=== PATIENT | female | born 1960 | race Caucasian/White ===

== ENCOUNTER 2021-03-01 20:34 | Inpatient (IN) ==
[2021-03-02] MEDS ORDERED: 0.9 % Sodium Chloride 1,000 ML ONE (09:12)
[2021-03-02 09:23] LABS: ABG Base Excess -1 mEq/L (-2 to 3); ABG HCO3 24 mEq/L (21-27); ABG Oxygen Saturation 93 % (95-98); ABG PCO2 43 mmHg (35-45); ABG PH 7.36 pH Units (7.32-7.45); ABG PO2 68 mmHg (85-104); ABG TCO2 26 mEq/L (20-26); Blood Gas Modality AF; Blood Gas VT 500 cc
[2021-03-02] MEDS ORDERED: Artificial Tears SOLN 15 ML BOTTLE BOTH EYES PRN (09:27)
[2021-03-02] MEDS ORDERED: FentaNYL (PF) 1,000 MCG/100 ML IV.SOLN IVC SCH (09:30)
[2021-03-02] MEDS: FentaNYL (PF) 1,000 MCG/100 ML IV.SOLN IVC SCH ×2 (09:30→18:14)
[2021-03-02] MEDS: Midazolam HCl 50 MG/100 ML IV.SOLN IVC SCH ×2 (09:30→15:53)
[2021-03-02] MEDS ORDERED: Dextrose Gel 15 GM/37.5 ML TUBE PO PRN ×2 (09:52)
[2021-03-02] MEDS ORDERED: D5% in Water 1,000 ML IVC PRN (09:52)
[2021-03-02] MEDS ORDERED: *HR* Dextrose 50 % in Water (Syg) 50 ML SYRINGE IVP PRN (09:52)
[2021-03-02 09:56] LABS: Hematocrit 41.3 % (35.3-44.9); Hemoglobin 13.4 g/dL (11.5-15.4); Mean Corpuscular HGB Conc 32.4 g/dL (31.6-35.5); Mean Corpuscular Hemoglobin 30.1 pg (28.0-33.3); Mean Corpuscular Volume 92.8 fL (83.0-100.0); Platelet Count 264 K/mcL (140-400); Red Blood Count 4.45 M/mcL (3.82-4.97); Red Cell Distribution Width 13.5 % (11.5-14.5); White Blood Count 13.9 K/mcL (4.3-11.1)
[2021-03-02 10:00] LABS: ABG Base Excess -3 mEq/L (-2 to 3); ABG HCO3 22 mEq/L (21-27); ABG Oxygen Saturation 90 % (95-98); ABG PCO2 40 mmHg (35-45); ABG PH 7.35 pH Units (7.32-7.45); ABG PO2 62 mmHg (85-104); ABG TCO2 24 mEq/L (20-26); Blood Gas Modality AF; Blood Gas VT 420 cc
[2021-03-02] MEDS: Norepinephrine 4 MG/254 ML IV.SOLN IVC SCH ×2 (10:00→19:46)
[2021-03-02 10:15] LABS: Albumin 3.3 g/dL (3.5-5.7); Albumin/Globulin Ratio 1.1 (1.1-2.2); Bilirubin,Total 0.5 mg/dL (0.3-1.0); Globulin 2.9 g/dL (2.4-3.5); Potassium 4.3 mEq/L (3.5-5.1); Total Protein 6.2 g/dL (6.4-8.9)
[2021-03-02] MEDS: *HR* Enoxaparin 40 MG/0.4 ML SYRINGE SQ SCH (12:55)
[2021-03-02] MEDS: Furosemide 40 MG/4 ML VIAL IVP SCH ×2 (12:55→20:02)
[2021-03-02] MEDS: Insulin LISPRO 300 UNITS/3 ML VIAL SUBQ SCH ×3 (13:03→23:04)
[2021-03-02] MEDS: Artificial Tears SOLN 15 ML BOTTLE BOTH EYES SCH ×4 (13:04→21:17)
[2021-03-02] MEDS: Cisatracurium 200 MG in 0.9 % Sodium Chloride 180 ML IVC SCH ×2 (14:15→21:47)
[2021-03-02] MEDS: Chlorhexidine Rinse 15 ML MOUTHWASH MM SCH ×2 (17:55→20:02)
[2021-03-02] MEDS: Azithromycin 500 MG in 0.9 % Sodium Chloride 250 ML IVPB SCH (20:02)
[2021-03-02] MEDS: Piperacillin/Tazobactam 3.375 GM in 0.9 % Sodium Chloride Mini Bag 100 ML IVPB SCH (23:03)
[2021-03-03] MEDS: Norepinephrine 4 MG/254 ML IV.SOLN IVC SCH ×4 (00:04→23:38)
[2021-03-03] MEDS: FentaNYL (PF) 1,000 MCG/100 ML IV.SOLN IVC SCH ×2 (03:00→18:40)
[2021-03-03 03:48] LABS: Hemoglobin 12.2 g/dL (11.5-15.4); Mean Corpuscular HGB Conc 33.9 g/dL (31.6-35.5); Mean Corpuscular Hemoglobin 30.7 pg (28.0-33.3); Mean Corpuscular Volume 90.5 fL (83.0-100.0); Platelet Count 283 K/mcL (140-400); Red Blood Count 3.98 M/mcL (3.82-4.97); Red Cell Distribution Width 13.2 % (11.5-14.5); White Blood Count 8.8 K/mcL (4.3-11.1)
[2021-03-03 03:50] LABS: Alanine Aminotransferase 39 Units/L (7-52); Albumin 2.9 g/dL (3.5-5.7); Alkaline Phosphatase 44 Units/L (34-104); Aspartate Amino Transferase 31 Units/L (13-39); BUN/Creatinine Ratio 28 (6-26); Bilirubin,Total 0.4 mg/dL (0.3-1.0); Blood Urea Nitrogen 29 mg/dL (6-20); C-Reactive Protein 124 mg/L (Less than 10); Calcium 8.8 mg/dL (8.6-10.3); Carbon Dioxide 23 mEq/L (23-29); Chloride 109 mEq/L (98-107); Globulin 2.8 g/dL (2.4-3.5); Glucose 162 mg/dL (70-105); Osmolality,Calculated 305 (280-300); Potassium 3.6 mEq/L (3.5-5.1); Sodium 143 mEq/L (136-145); Total Protein 5.7 g/dL (6.4-8.9); eGFR For African Americans > 60 (> 60); eGFR For Non-African Americans 56 (> 60)
[2021-03-03] MEDS: *HR* Enoxaparin 40 MG/0.4 ML SYRINGE SQ SCH (05:01)
[2021-03-03] MEDS: Insulin LISPRO 300 UNITS/3 ML VIAL SUBQ SCH ×4 (05:02→23:09)
[2021-03-03] MEDS: Cisatracurium 200 MG in 0.9 % Sodium Chloride 180 ML IVC SCH ×3 (05:09→20:26)
[2021-03-03 05:34] LABS: ABG Base Excess 0 mEq/L (-2 to 3); ABG HCO3 24 mEq/L (21-27); ABG Oxygen Saturation 100 % (95-98); ABG PCO2 35 mmHg (35-45); ABG PH 7.45 pH Units (7.32-7.45); ABG PO2 242 mmHg (85-104); ABG TCO2 25 mEq/L (20-26); Blood Gas Modality ASSIST CONTROL; Blood Gas VT 420 cc
[2021-03-03] MEDS: Midazolam HCl 50 MG/100 ML IV.SOLN IVC SCH ×2 (06:15→18:40)
[2021-03-03] MEDS: Piperacillin/Tazobactam 3.375 GM in 0.9 % Sodium Chloride Mini Bag 100 ML IVPB SCH ×3 (09:04→23:12)
[2021-03-03] MEDS: Artificial Tears SOLN 15 ML BOTTLE BOTH EYES SCH ×5 (09:04→23:08)
[2021-03-03] MEDS: Furosemide 40 MG/4 ML VIAL IVP SCH ×2 (09:05→19:23)
[2021-03-03] MEDS: Dexamethasone Sodium Phos/PF 10 MG/ML VIAL IVP SCH (09:05)
[2021-03-03] MEDS: Chlorhexidine Rinse 15 ML MOUTHWASH MM SCH ×2 (09:05→19:23)
[2021-03-03] MEDS: Pantoprazole 40 MG VIAL IVP SCH (09:06)
[2021-03-03] MEDS: Azithromycin 500 MG in 0.9 % Sodium Chloride 250 ML IVPB SCH (19:21)
[2021-03-04] MEDS: FentaNYL (PF) 1,000 MCG/100 ML IV.SOLN IVC SCH ×6 (00:33→23:00)
[2021-03-04] MEDS: Artificial Tears SOLN 15 ML BOTTLE BOTH EYES SCH ×7 (03:09→21:38)
[2021-03-04 03:20] LABS: Hematocrit 35.5 % (35.3-44.9); Hemoglobin 11.5 g/dL (11.5-15.4); Mean Corpuscular HGB Conc 32.4 g/dL (31.6-35.5); Mean Corpuscular Hemoglobin 29.7 pg (28.0-33.3); Mean Corpuscular Volume 91.7 fL (83.0-100.0); Mean Platelet Volume 10.1 fL (9.4-12.4); Platelet Count 224 K/mcL (140-400); Red Blood Count 3.87 M/mcL (3.82-4.97); Red Cell Distribution Width 12.9 % (11.5-14.5); White Blood Count 5.7 K/mcL (4.3-11.1)
[2021-03-04 03:36] LABS: Alanine Aminotransferase 56 Units/L (7-52); Albumin 2.9 g/dL (3.5-5.7); Albumin/Globulin Ratio 1.1 (1.1-2.2); Alkaline Phosphatase 53 Units/L (34-104); Aspartate Amino Transferase 41 Units/L (13-39); BUN/Creatinine Ratio 33 (6-26); Bilirubin,Total 0.4 mg/dL (0.3-1.0); Blood Urea Nitrogen 30 mg/dL (6-20); C-Reactive Protein 49 mg/L (Less than 10); Calcium 8.7 mg/dL (8.6-10.3); Carbon Dioxide 27 mEq/L (23-29); Chloride 111 mEq/L (98-107); Globulin 2.6 g/dL (2.4-3.5); Glucose 181 mg/dL (70-105); Osmolality,Calculated 311 (280-300); Sodium 145 mEq/L (136-145); Total Protein 5.5 g/dL (6.4-8.9); eGFR For African Americans > 60 (> 60); eGFR For Non-African Americans > 60 (> 60)
[2021-03-04] MEDS: Cisatracurium 200 MG in 0.9 % Sodium Chloride 180 ML IVC SCH ×3 (03:43→19:59)
[2021-03-04] MEDS: *HR* Enoxaparin 40 MG/0.4 ML SYRINGE SQ SCH (05:02)
[2021-03-04 05:10] LABS: ABG Base Excess 2 mEq/L (-2 to 3); ABG HCO3 27 mEq/L (21-27); ABG Oxygen Saturation 96 % (95-98); ABG PCO2 42 mmHg (35-45); ABG PH 7.42 pH Units (7.32-7.45); ABG PO2 81 mmHg (85-104); ABG TCO2 29 mEq/L (20-26); Blood Gas Modality AF; Blood Gas VT 420 cc
[2021-03-04] MEDS: Insulin LISPRO 300 UNITS/3 ML VIAL SUBQ SCH ×4 (05:17→23:08)
[2021-03-04] MEDS: Chlorhexidine Rinse 15 ML MOUTHWASH MM SCH ×2 (08:19→20:05)
[2021-03-04] MEDS: Cholecalciferol (D-3) 1,000 UNIT (25MCG) TABLET PO SCH (08:21)
[2021-03-04] MEDS: Furosemide 40 MG/4 ML VIAL IVP SCH ×2 (08:21→20:05)
[2021-03-04] MEDS: Dexamethasone Sodium Phos/PF 10 MG/ML VIAL IVP SCH (08:21)
[2021-03-04] MEDS: Pantoprazole 40 MG VIAL IVP SCH (08:21)
[2021-03-04] MEDS: Piperacillin/Tazobactam 3.375 GM in 0.9 % Sodium Chloride Mini Bag 100 ML IVPB SCH ×3 (08:22→23:01)
[2021-03-04] MEDS ORDERED: *HR* Heparin 5,000 UNIT/ML VIAL IVP ONE (11:06)
[2021-03-04 11:54] LABS: Hematocrit 39.5 % (35.3-44.9); Hemoglobin 12.7 g/dL (11.5-15.4); Mean Corpuscular HGB Conc 32.2 g/dL (31.6-35.5); Mean Corpuscular Hemoglobin 29.9 pg (28.0-33.3); Mean Corpuscular Volume 92.9 fL (83.0-100.0); Platelet Count 263 K/mcL (140-400); Red Blood Count 4.25 M/mcL (3.82-4.97); Red Cell Distribution Width 12.9 % (11.5-14.5); White Blood Count 7.4 K/mcL (4.3-11.1)
[2021-03-04 12:02] LABS: Heparin anti-factor XA UFH 0.26 IU/mL (0.30-0.70); INR 1.1; Prothrombin Time 12.4 Seconds (9.4-12.1)
[2021-03-04] MEDS: Heparin 25,000UNIT/250ML 1/2NS 25,000 UNIT/250 ML IV.SOLN IVC SCH (12:29)
[2021-03-04] MEDS: Midazolam HCl 50 MG/100 ML IV.SOLN IVC SCH (13:30)
[2021-03-04] MEDS: Norepinephrine 4 MG/254 ML IV.SOLN IVC SCH ×2 (14:14→18:50)
[2021-03-04] MEDS ORDERED: *HR* Heparin 5,000 UNIT/ML VIAL IVP PRN ×2 (17:00)
[2021-03-05] MEDS: Norepinephrine 4 MG/254 ML IV.SOLN IVC SCH (00:14)
[2021-03-05] MEDS: Heparin 25,000UNIT/250ML 1/2NS 25,000 UNIT/250 ML IV.SOLN IVC SCH ×2 (00:16→17:29)
[2021-03-05] MEDS: Cisatracurium 200 MG in 0.9 % Sodium Chloride 180 ML IVC SCH ×3 (03:00→17:28)
[2021-03-05] MEDS: FentaNYL (PF) 1,000 MCG/100 ML IV.SOLN IVC SCH ×6 (03:01→23:31)
[2021-03-05 03:20] LABS: Hematocrit 37.7 % (35.3-44.9); Hemoglobin 12.4 g/dL (11.5-15.4); Mean Corpuscular HGB Conc 32.9 g/dL (31.6-35.5); Mean Corpuscular Volume 91.3 fL (83.0-100.0); Mean Platelet Volume 9.9 fL (9.4-12.4); Platelet Count 269 K/mcL (140-400); Red Blood Count 4.13 M/mcL (3.82-4.97); Red Cell Distribution Width 12.6 % (11.5-14.5); White Blood Count 7.3 K/mcL (4.3-11.1)
[2021-03-05 03:42] LABS: Alanine Aminotransferase 58 Units/L (7-52); Albumin 3.1 g/dL (3.5-5.7); Albumin/Globulin Ratio 1.2 (1.1-2.2); Alkaline Phosphatase 60 Units/L (34-104); Aspartate Amino Transferase 40 Units/L (13-39); BUN/Creatinine Ratio 41 (6-26); Bilirubin,Total 0.6 mg/dL (0.3-1.0); Blood Urea Nitrogen 38 mg/dL (6-20); C-Reactive Protein 23 mg/L (Less than 10); Calcium 9.2 mg/dL (8.6-10.3); Carbon Dioxide 28 mEq/L (23-29); Chloride 112 mEq/L (98-107); Globulin 2.6 g/dL (2.4-3.5); Glucose 163 mg/dL (70-105); Magnesium 2.2 mg/dL (1.6-2.6); Osmolality,Calculated 321 (280-300); Potassium 3.6 mEq/L (3.5-5.1); Sodium 149 mEq/L (136-145); Total Protein 5.7 g/dL (6.4-8.9); eGFR For African Americans > 60 (> 60); eGFR For Non-African Americans > 60 (> 60)
[2021-03-05 04:22] LABS: ABG Base Excess 5 mEq/L (-2 to 3); ABG HCO3 28 mEq/L (21-27); ABG Oxygen Saturation 100 % (95-98); ABG PCO2 35 mmHg (35-45); ABG PH 7.52 pH Units (7.32-7.45); ABG PO2 209 mmHg (85-104); ABG TCO2 29 mEq/L (20-26); Blood Gas Modality AF; Blood Gas VT 420 cc
[2021-03-05] MEDS: Insulin LISPRO 300 UNITS/3 ML VIAL SUBQ SCH ×3 (05:05→21:29)
[2021-03-05] MEDS: Midazolam HCl 50 MG/100 ML IV.SOLN IVC SCH ×2 (05:30→17:34)
[2021-03-05] MEDS: Dexamethasone Sodium Phos/PF 10 MG/ML VIAL IVP SCH (07:59)
[2021-03-05] MEDS: Pantoprazole 40 MG VIAL IVP SCH (07:59)
[2021-03-05] MEDS: Artificial Tears SOLN 15 ML BOTTLE BOTH EYES SCH ×4 (08:00→21:29)
[2021-03-05] MEDS: Piperacillin/Tazobactam 3.375 GM in 0.9 % Sodium Chloride Mini Bag 100 ML IVPB SCH ×2 (08:00→16:38)
[2021-03-05] MEDS: Chlorhexidine Rinse 15 ML MOUTHWASH MM SCH ×2 (08:00→21:28)
[2021-03-05] MEDS ORDERED: Perflutren Lipid Microsphere 1.3 ML in 0.9 % Sodium Chloride 8.7 ML IVP PRN (08:32)
[2021-03-05] MEDS: Cholecalciferol (D-3) 1,000 UNIT (25MCG) TABLET PO SCH (10:30)
[2021-03-05 11:14] LABS: ABG Base Excess 2 mEq/L (-2 to 3); ABG HCO3 28 mEq/L (21-27); ABG Oxygen Saturation 89 % (95-98); ABG PCO2 47 mmHg (35-45); ABG PH 7.38 pH Units (7.32-7.45); ABG PO2 59 mmHg (85-104); ABG TCO2 29 mEq/L (20-26); Blood Gas Modality ASSIST CONTROL; Blood Gas VT 420 cc
[2021-03-05] MEDS: Furosemide 40 MG/4 ML VIAL IVP SCH (11:20)
[2021-03-05] MEDS ORDERED: D10% in Water 500 ML IVC PRN (12:23)
[2021-03-05] MEDS ORDERED: Ipratropium 1 PUFF INHALER IH PRN (13:40)
[2021-03-05] MEDS ORDERED: Clinimix E 5%-15% SOLUTION 2,000 ML with MVI, adult with vitamin K 10 ML IVC SCH (17:00)
[2021-03-05 19:06] LABS: Bilirubin,Urine Negative (Negative); Blood,Urine Negative (Negative); Clarity,Urine Clear (Clear); Color,Urine Light-Yellow (Yellow); Glucose,Urine (UA) Normal (Normal); Ketones,Urine Negative (Negative); Leukocyte Esterase,Urine Negative (Negative); Nitrite,Urine Negative (Negative); Protein,Urine Trace mg/dL (Neg-Trace); Specific Gravity,Urine 1.028 (1.010-1.025); Urobilinogen,Urine Normal (Normal)
[2021-03-06] MEDS: Cisatracurium 200 MG in 0.9 % Sodium Chloride 180 ML IVC SCH ×2 (00:10→17:27)
[2021-03-06] MEDS: Piperacillin/Tazobactam 3.375 GM in 0.9 % Sodium Chloride Mini Bag 100 ML IVPB SCH ×3 (00:30→16:58)
[2021-03-06] MEDS: Insulin LISPRO 300 UNITS/3 ML VIAL SUBQ SCH ×5 (02:05→20:46)
[2021-03-06] MEDS: Artificial Tears SOLN 15 ML BOTTLE BOTH EYES SCH ×8 (02:05→23:59)
[2021-03-06] MEDS: FentaNYL (PF) 1,000 MCG/100 ML IV.SOLN IVC SCH ×5 (03:43→20:36)
[2021-03-06 04:06] LABS: ABG Base Excess 2 mEq/L (-2 to 3); ABG HCO3 28 mEq/L (21-27); ABG Oxygen Saturation 100 % (95-98); ABG PCO2 46 mmHg (35-45); ABG PH 7.39 pH Units (7.32-7.45); ABG PO2 293 mmHg (85-104); ABG TCO2 29 mEq/L (20-26); Blood Gas VT 420 cc
[2021-03-06] MEDS: Midazolam HCl 50 MG/100 ML IV.SOLN IVC SCH ×2 (04:59→15:43)
[2021-03-06 05:21] LABS: Alanine Aminotransferase 69 Units/L (7-52); Albumin/Globulin Ratio 1.2 (1.1-2.2); Alkaline Phosphatase 57 Units/L (34-104); Aspartate Amino Transferase 38 Units/L (13-39); BUN/Creatinine Ratio 48 (6-26); Bilirubin,Total 0.4 mg/dL (0.3-1.0); Blood Urea Nitrogen 39 mg/dL (6-20); C-Reactive Protein 8 mg/L (Less than 10); Calcium 9.1 mg/dL (8.6-10.3); Carbon Dioxide 27 mEq/L (23-29); Chloride 118 mEq/L (98-107); Globulin 2.6 g/dL (2.4-3.5); Glucose 206 mg/dL (70-105); Osmolality,Calculated 325 (280-300); Potassium 4.2 mEq/L (3.5-5.1); Sodium 150 mEq/L (136-145); Total Protein 5.6 g/dL (6.4-8.9); eGFR For African Americans > 60 (> 60); eGFR For Non-African Americans > 60 (> 60)
[2021-03-06] MEDS: Dexamethasone Sodium Phos/PF 10 MG/ML VIAL IVP SCH (08:41)
[2021-03-06] MEDS: Chlorhexidine Rinse 15 ML MOUTHWASH MM SCH ×2 (08:41→20:10)
[2021-03-06] MEDS: Pantoprazole 40 MG VIAL IVP SCH (08:42)
[2021-03-06] MEDS: Cholecalciferol (D-3) 1,000 UNIT (25MCG) TABLET PO SCH (08:42)
[2021-03-06] MEDS ORDERED: Furosemide 40 MG/4 ML VIAL IVP SCH (09:00)
[2021-03-06 12:40] LABS: ABG Base Excess 1 mEq/L (-2 to 3); ABG HCO3 27 mEq/L (21-27); ABG Oxygen Saturation 87 % (95-98); ABG PCO2 51 mmHg (35-45); ABG PH 7.34 pH Units (7.32-7.45); ABG PO2 58 mmHg (85-104); ABG TCO2 29 mEq/L (20-26); Blood Gas Modality ASSIST CONTROL; Blood Gas VT 420 cc
[2021-03-06 15:20] LABS: Hemoglobin 12.3 g/dL (11.5-15.4); Mean Corpuscular Hemoglobin 29.9 pg (28.0-33.3); Mean Corpuscular Volume 99.5 fL (83.0-100.0); Mean Platelet Volume 9.7 fL (9.4-12.4); Platelet Count 273 K/mcL (140-400); Red Blood Count 4.12 M/mcL (3.82-4.97); White Blood Count 9.7 K/mcL (4.3-11.1)
[2021-03-06] MEDS ORDERED: Clinimix E 5%-15% SOLUTION 2,000 ML with MVI, adult with vitamin K 10 ML IVC SCH (17:00)
[2021-03-06 19:42] LABS: ABG Base Excess 0 mEq/L (-2 to 3); ABG HCO3 27 mEq/L (21-27); ABG Oxygen Saturation 96 % (95-98); ABG PCO2 49 mmHg (35-45); ABG PH 7.35 pH Units (7.32-7.45); ABG PO2 88 mmHg (85-104); ABG TCO2 28 mEq/L (20-26); Blood Gas Modality ASSIST CONTROL; Blood Gas VT 420 cc
[2021-03-06] MEDS: Heparin 25,000UNIT/250ML 1/2NS 25,000 UNIT/250 ML IV.SOLN IVC SCH (20:48)
[2021-03-07] MEDS: Insulin LISPRO 300 UNITS/3 ML VIAL SUBQ SCH ×7 (00:13→23:34)
[2021-03-07] MEDS: Midazolam HCl 50 MG/100 ML IV.SOLN IVC SCH ×3 (00:26→20:05)
[2021-03-07] MEDS: FentaNYL (PF) 1,000 MCG/100 ML IV.SOLN IVC SCH ×5 (00:27→17:55)
[2021-03-07] MEDS: Cisatracurium 200 MG in 0.9 % Sodium Chloride 180 ML IVC SCH ×3 (00:29→16:40)
[2021-03-07] MEDS: Piperacillin/Tazobactam 3.375 GM in 0.9 % Sodium Chloride Mini Bag 100 ML IVPB SCH ×4 (00:35→23:10)
[2021-03-07] MEDS: Artificial Tears SOLN 15 ML BOTTLE BOTH EYES SCH ×7 (02:01→23:10)
[2021-03-07 04:26] LABS: Hematocrit 36.9 % (35.3-44.9); Hemoglobin 11.4 g/dL (11.5-15.4); Mean Corpuscular HGB Conc 30.9 g/dL (31.6-35.5); Mean Corpuscular Hemoglobin 29.8 pg (28.0-33.3); Mean Corpuscular Volume 96.3 fL (83.0-100.0); Mean Platelet Volume 9.5 fL (9.4-12.4); Platelet Count 254 K/mcL (140-400); Red Blood Count 3.83 M/mcL (3.82-4.97); Red Cell Distribution Width 12.8 % (11.5-14.5); White Blood Count 9.1 K/mcL (4.3-11.1)
[2021-03-07 04:38] LABS: ABG Base Excess 1 mEq/L (-2 to 3); ABG HCO3 27 mEq/L (21-27); ABG Oxygen Saturation 99 % (95-98); ABG PCO2 47 mmHg (35-45); ABG PH 7.37 pH Units (7.32-7.45); ABG PO2 154 mmHg (85-104); ABG TCO2 29 mEq/L (20-26); Blood Gas VT 420 cc
[2021-03-07 04:46] LABS: Alanine Aminotransferase 84 Units/L (7-52); Albumin 2.8 g/dL (3.5-5.7); Albumin/Globulin Ratio 1.2 (1.1-2.2); Alkaline Phosphatase 56 Units/L (34-104); Aspartate Amino Transferase 36 Units/L (13-39); BUN/Creatinine Ratio 44 (6-26); Bilirubin,Total 0.4 mg/dL (0.3-1.0); Blood Urea Nitrogen 29 mg/dL (6-20); C-Reactive Protein < 5 mg/L (Less than 10); Calcium 8.7 mg/dL (8.6-10.3); Carbon Dioxide 27 mEq/L (23-29); Chloride 115 mEq/L (98-107); Globulin 2.3 g/dL (2.4-3.5); Glucose 216 mg/dL (70-105); Magnesium 2.2 mg/dL (1.6-2.6); Osmolality,Calculated 314 (280-300); Potassium 4.3 mEq/L (3.5-5.1); Sodium 146 mEq/L (136-145); Total Protein 5.1 g/dL (6.4-8.9); eGFR For African Americans > 60 (> 60); eGFR For Non-African Americans > 60 (> 60)
[2021-03-07] MEDS: Cholecalciferol (D-3) 1,000 UNIT (25MCG) TABLET PO SCH (08:24)
[2021-03-07] MEDS: Chlorhexidine Rinse 15 ML MOUTHWASH MM SCH ×2 (08:24→19:58)
[2021-03-07] MEDS: Pantoprazole 40 MG VIAL IVP SCH (08:25)
[2021-03-07] MEDS: Dexamethasone Sodium Phos/PF 10 MG/ML VIAL IVP SCH (08:25)
[2021-03-07] MEDS: Furosemide 20 MG/2 ML VIAL IVP SCH (08:26)
[2021-03-07 10:16] LABS: Phosphorous 2.6 mg/dL (2.7-4.5)
[2021-03-07 12:45] LABS: ABG Base Excess 3 mEq/L (-2 to 3); ABG HCO3 30 mEq/L (21-27); ABG Oxygen Saturation 94 % (95-98); ABG PCO2 56 mmHg (35-45); ABG PH 7.34 pH Units (7.32-7.45); ABG PO2 77 mmHg (85-104); ABG TCO2 32 mEq/L (20-26); Blood Gas VT 420 cc
[2021-03-07] MEDS ORDERED: Lidocaine -MPF 1% 5 ML AMPUL INFILT ONE (14:51)
[2021-03-07] MEDS ORDERED: Clinimix E 5%-15% SOLUTION 2,000 ML with MVI, adult with vitamin K 10 ML IVC SCH (17:00)
[2021-03-07] MEDS: FentaNYL (PF) 2,500 MCG/50 ML IV.SOLN IVC SCH (21:43)
[2021-03-08] MEDS: Cisatracurium 200 MG in 0.9 % Sodium Chloride 180 ML IVC SCH ×4 (00:27→21:13)
[2021-03-08] MEDS: Insulin LISPRO 300 UNITS/3 ML VIAL SUBQ SCH ×5 (03:35→20:01)
[2021-03-08] MEDS: Artificial Tears SOLN 15 ML BOTTLE BOTH EYES SCH ×7 (03:35→23:51)
[2021-03-08] MEDS: FentaNYL (PF) 2,500 MCG/50 ML IV.SOLN IVC SCH ×3 (03:36→21:48)
[2021-03-08 03:53] LABS: ABG Base Excess 3 mEq/L (-2 to 3); ABG HCO3 29 mEq/L (21-27); ABG Oxygen Saturation 98 % (95-98); ABG PCO2 50 mmHg (35-45); ABG PH 7.37 pH Units (7.32-7.45); ABG PO2 116 mmHg (85-104); ABG TCO2 31 mEq/L (20-26); Blood Gas Modality AF; Blood Gas VT 420 cc; VBG Ionized Calcium 1.32 mmol/L (1.15-1.35)
[2021-03-08] MEDS: Heparin 25,000UNIT/250ML 1/2NS 25,000 UNIT/250 ML IV.SOLN IVC SCH ×3 (04:01→23:51)
[2021-03-08 04:07] LABS: Hematocrit 34.6 % (35.3-44.9); Hemoglobin 10.8 g/dL (11.5-15.4); Mean Corpuscular HGB Conc 31.2 g/dL (31.6-35.5); Mean Corpuscular Hemoglobin 29.6 pg (28.0-33.3); Mean Corpuscular Volume 94.8 fL (83.0-100.0); Mean Platelet Volume 9.8 fL (9.4-12.4); Platelet Count 257 K/mcL (140-400); Red Blood Count 3.65 M/mcL (3.82-4.97); Red Cell Distribution Width 12.6 % (11.5-14.5); White Blood Count 9.1 K/mcL (4.3-11.1)
[2021-03-08 04:21] LABS: Heparin anti-factor XA UFH 0.36 IU/mL (0.30-0.70)
[2021-03-08 04:26] LABS: Alanine Aminotransferase 80 Units/L (7-52); Albumin 2.7 g/dL (3.5-5.7); Albumin/Globulin Ratio 1.2 (1.1-2.2); Alkaline Phosphatase 55 Units/L (34-104); Aspartate Amino Transferase 29 Units/L (13-39); BUN/Creatinine Ratio 54 (6-26); Bilirubin,Total 0.5 mg/dL (0.3-1.0); Blood Urea Nitrogen 29 mg/dL (6-20); C-Reactive Protein < 5 mg/L (Less than 10); Calcium 8.9 mg/dL (8.6-10.3); Carbon Dioxide 29 mEq/L (23-29); Chloride 109 mEq/L (98-107); Globulin 2.2 g/dL (2.4-3.5); Glucose 241 mg/dL (70-105); Osmolality,Calculated 308 (280-300); Phosphorous 2.9 mg/dL (2.7-4.5); Potassium 4.4 mEq/L (3.5-5.1); Sodium 142 mEq/L (136-145); Total Protein 4.9 g/dL (6.4-8.9); Triglycerides 302 mg/dL (< 150); eGFR For African Americans > 60 (> 60); eGFR For Non-African Americans > 60 (> 60)
[2021-03-08] MEDS: Midazolam HCl 50 MG/100 ML IV.SOLN IVC SCH ×3 (05:33→21:15)
[2021-03-08] MEDS: Albumin Human 5% 12.5 GM/250 ML IV.SOLN IVC SCH ×2 (05:35→12:14)
[2021-03-08] MEDS: Chlorhexidine Rinse 15 ML MOUTHWASH MM SCH ×2 (08:32→19:59)
[2021-03-08] MEDS: Pantoprazole 40 MG VIAL IVP SCH (08:32)
[2021-03-08] MEDS: Furosemide 20 MG/2 ML VIAL IVP SCH (08:33)
[2021-03-08] MEDS: Piperacillin/Tazobactam 3.375 GM in 0.9 % Sodium Chloride Mini Bag 100 ML IVPB SCH ×3 (08:33→23:53)
[2021-03-08] MEDS: Cholecalciferol (D-3) 1,000 UNIT (25MCG) TABLET PO SCH (08:34)
[2021-03-08] MEDS: Dexamethasone Sodium Phos/PF 10 MG/ML VIAL IVP SCH (08:34)
[2021-03-08 14:58] LABS: ABG Base Excess 3 mEq/L (-2 to 3); ABG HCO3 30 mEq/L (21-27); ABG Oxygen Saturation 95 % (95-98); ABG PCO2 56 mmHg (35-45); ABG PH 7.34 pH Units (7.32-7.45); ABG PO2 79 mmHg (85-104); ABG TCO2 32 mEq/L (20-26); Blood Gas VT 420 cc
[2021-03-08] MEDS ORDERED: Clinimix E 5%-15% SOLUTION 2,000 ML with MVI, adult with vitamin K 10 ML IVC SCH (17:00)
[2021-03-08] MEDS: Norepinephrine 4 MG/254 ML IV.SOLN IVC SCH (21:49)
[2021-03-09] MEDS: Insulin LISPRO 300 UNITS/3 ML VIAL SUBQ SCH ×7 (00:12→23:04)
[2021-03-09 00:59] LABS: ABG Base Excess 2 mEq/L (-2 to 3); ABG HCO3 28 mEq/L (21-27); ABG Oxygen Saturation 92 % (95-98); ABG PCO2 49 mmHg (35-45); ABG PH 7.37 pH Units (7.32-7.45); ABG PO2 67 mmHg (85-104); ABG TCO2 30 mEq/L (20-26); Blood Gas Modality AF; Blood Gas VT 420 cc
[2021-03-09] MEDS: Artificial Tears SOLN 15 ML BOTTLE BOTH EYES SCH ×6 (04:13→23:04)
[2021-03-09 04:17] LABS: ABG Base Excess 3 mEq/L (-2 to 3); ABG HCO3 30 mEq/L (21-27); ABG Oxygen Saturation 92 % (95-98); ABG PCO2 52 mmHg (35-45); ABG PH 7.36 pH Units (7.32-7.45); ABG PO2 68 mmHg (85-104); ABG TCO2 31 mEq/L (20-26); Blood Gas Modality AF; Blood Gas VT 420 cc
[2021-03-09 04:25] LABS: VBG Ionized Calcium 1.29 mmol/L (1.15-1.35)
[2021-03-09 04:40] LABS: Hematocrit 33.4 % (35.3-44.9); Hemoglobin 10.6 g/dL (11.5-15.4); Mean Corpuscular HGB Conc 31.7 g/dL (31.6-35.5); Mean Corpuscular Hemoglobin 29.9 pg (28.0-33.3); Mean Corpuscular Volume 94.1 fL (83.0-100.0); Platelet Count 263 K/mcL (140-400); Red Blood Count 3.55 M/mcL (3.82-4.97); Red Cell Distribution Width 12.5 % (11.5-14.5); White Blood Count 9.4 K/mcL (4.3-11.1)
[2021-03-09] MEDS: Cisatracurium 200 MG in 0.9 % Sodium Chloride 180 ML IVC SCH ×3 (04:40→17:48)
[2021-03-09 04:45] LABS: Heparin anti-factor XA UFH 0.43 IU/mL (0.30-0.70)
[2021-03-09 04:49] LABS: Alanine Aminotransferase 87 Units/L (7-52); Albumin/Globulin Ratio 1.5 (1.1-2.2); Alkaline Phosphatase 52 Units/L (34-104); Aspartate Amino Transferase 33 Units/L (13-39); BUN/Creatinine Ratio 48 (6-26); Bilirubin,Total 0.6 mg/dL (0.3-1.0); Blood Urea Nitrogen 33 mg/dL (6-20); C-Reactive Protein < 5 mg/L (Less than 10); Calcium 9.1 mg/dL (8.6-10.3); Carbon Dioxide 29 mEq/L (23-29); Chloride 105 mEq/L (98-107); Glucose 195 mg/dL (70-105); Magnesium 1.9 mg/dL (1.6-2.6); Osmolality,Calculated 301 (280-300); Phosphorous 3.1 mg/dL (2.7-4.5); Potassium 4.3 mEq/L (3.5-5.1); Sodium 139 mEq/L (136-145); eGFR For African Americans > 60 (> 60); eGFR For Non-African Americans > 60 (> 60)
[2021-03-09] MEDS: Heparin 25,000UNIT/250ML 1/2NS 25,000 UNIT/250 ML IV.SOLN IVC SCH (04:57)
[2021-03-09] MEDS: Midazolam HCl 50 MG/100 ML IV.SOLN IVC SCH ×3 (05:53→22:00)
[2021-03-09] MEDS: FentaNYL (PF) 2,500 MCG/50 ML IV.SOLN IVC SCH ×2 (05:55→16:19)
[2021-03-09] MEDS: Piperacillin/Tazobactam 3.375 GM in 0.9 % Sodium Chloride Mini Bag 100 ML IVPB SCH ×3 (08:31→23:06)
[2021-03-09] MEDS: Dexamethasone Sodium Phos/PF 10 MG/ML VIAL IVP SCH (08:32)
[2021-03-09] MEDS: Pantoprazole 40 MG VIAL IVP SCH (08:32)
[2021-03-09] MEDS: Cholecalciferol (D-3) 1,000 UNIT (25MCG) TABLET PO SCH (08:32)
[2021-03-09] MEDS: Chlorhexidine Rinse 15 ML MOUTHWASH MM SCH ×2 (08:32→17:49)
[2021-03-09] MEDS: Furosemide 20 MG/2 ML VIAL IVP SCH (08:32)
[2021-03-09] MEDS ORDERED: Clinimix E 5%-15% SOLUTION 2,000 ML with MVI, adult with vitamin K 10 ML IVC SCH (17:00)
[2021-03-09] MEDS: *HR* Enoxaparin 40 MG/0.4 ML SYRINGE SQ SCH (17:02)
[2021-03-09] MEDS: Norepinephrine 4 MG/254 ML IV.SOLN IVC SCH (17:03)
[2021-03-10] MEDS: Cisatracurium 200 MG in 0.9 % Sodium Chloride 180 ML IVC SCH ×4 (00:19→22:01)
[2021-03-10] MEDS: FentaNYL (PF) 2,500 MCG/50 ML IV.SOLN IVC SCH ×3 (00:20→19:00)
[2021-03-10] MEDS: Artificial Tears SOLN 15 ML BOTTLE BOTH EYES SCH ×6 (04:17→18:20)
[2021-03-10] MEDS: Insulin LISPRO 300 UNITS/3 ML VIAL SUBQ SCH ×6 (04:17→23:45)
[2021-03-10] MEDS: *HR* Enoxaparin 40 MG/0.4 ML SYRINGE SQ SCH ×2 (04:18→16:41)
[2021-03-10 04:24] LABS: Hemoglobin 11.9 g/dL (11.5-15.4); Mean Corpuscular HGB Conc 33.1 g/dL (31.6-35.5); Mean Corpuscular Hemoglobin 30.4 pg (28.0-33.3); Mean Corpuscular Volume 92.1 fL (83.0-100.0); Mean Platelet Volume 9.8 fL (9.4-12.4); Platelet Count 272 K/mcL (140-400); Red Blood Count 3.91 M/mcL (3.82-4.97); Red Cell Distribution Width 12.5 % (11.5-14.5); White Blood Count 11.8 K/mcL (4.3-11.1)
[2021-03-10 04:37] LABS: VBG Ionized Calcium 1.38 mmol/L (1.15-1.35)
[2021-03-10 04:44] LABS: Alanine Aminotransferase 100 Units/L (7-52); Albumin 3.4 g/dL (3.5-5.7); Albumin/Globulin Ratio 1.5 (1.1-2.2); Alkaline Phosphatase 60 Units/L (34-104); Aspartate Amino Transferase 28 Units/L (13-39); BUN/Creatinine Ratio 57 (6-26); Bilirubin,Total 0.6 mg/dL (0.3-1.0); Blood Urea Nitrogen 36 mg/dL (6-20); C-Reactive Protein < 5 mg/L (Less than 10); Calcium 9.7 mg/dL (8.6-10.3); Carbon Dioxide 31 mEq/L (23-29); Chloride 102 mEq/L (98-107); Globulin 2.3 g/dL (2.4-3.5); Glucose 191 mg/dL (70-105); Osmolality,Calculated 297 (280-300); Phosphorous 3.6 mg/dL (2.7-4.5); Sodium 137 mEq/L (136-145); Total Protein 5.7 g/dL (6.4-8.9); eGFR For African Americans > 60 (> 60); eGFR For Non-African Americans > 60 (> 60)
[2021-03-10 04:51] LABS: ABG Base Excess 4 mEq/L (-2 to 3); ABG HCO3 31 mEq/L (21-27); ABG Oxygen Saturation 86 % (95-98); ABG PCO2 60 mmHg (35-45); ABG PH 7.33 pH Units (7.32-7.45); ABG PO2 57 mmHg (85-104); ABG TCO2 33 mEq/L (20-26)
[2021-03-10] MEDS: Midazolam HCl 50 MG/100 ML IV.SOLN IVC SCH ×4 (05:20→22:28)
[2021-03-10] MEDS ORDERED: *HR* Metoprolol 5 MG/5 ML VIAL IVP ONE ×2 (05:51→05:53)
[2021-03-10] MEDS: Dexamethasone Sodium Phos/PF 10 MG/ML VIAL IVP SCH (08:15)
[2021-03-10] MEDS: Furosemide 20 MG/2 ML VIAL IVP SCH ×2 (08:15→16:41)
[2021-03-10] MEDS: Cholecalciferol (D-3) 1,000 UNIT (25MCG) TABLET PO SCH (08:16)
[2021-03-10] MEDS: Chlorhexidine Rinse 15 ML MOUTHWASH MM SCH ×2 (08:16→18:34)
[2021-03-10] MEDS: Pantoprazole 40 MG VIAL IVP SCH (08:16)
[2021-03-10] MEDS: Piperacillin/Tazobactam 3.375 GM in 0.9 % Sodium Chloride Mini Bag 100 ML IVPB SCH ×3 (08:16→23:33)
[2021-03-10 13:35] LABS: ABG Base Excess 3 mEq/L (-2 to 3); ABG HCO3 28 mEq/L (21-27); ABG Oxygen Saturation 100 % (95-98); ABG PCO2 42 mmHg (35-45); ABG PH 7.43 pH Units (7.32-7.45); ABG PO2 177 mmHg (85-104); ABG TCO2 29 mEq/L (20-26); Blood Gas Modality AF; Blood Gas VT 400 cc
[2021-03-10] MEDS ORDERED: Clinimix E 5%-15% SOLUTION 2,000 ML with MVI, adult with vitamin K 10 ML IVC SCH (17:00)
[2021-03-10] MEDS: Norepinephrine 4 MG/254 ML IV.SOLN IVC SCH (18:20)
[2021-03-11 03:28] LABS: VBG Ionized Calcium 1.31 mmol/L (1.15-1.35)
[2021-03-11] MEDS: Cisatracurium 200 MG in 0.9 % Sodium Chloride 180 ML IVC SCH (03:30)
[2021-03-11] MEDS: FentaNYL (PF) 2,500 MCG/50 ML IV.SOLN IVC SCH ×3 (03:30→22:02)
[2021-03-11] MEDS: Midazolam HCl 50 MG/100 ML IV.SOLN IVC SCH ×3 (03:32→17:23)
[2021-03-11 03:42] LABS: Hemoglobin 11.2 g/dL (11.5-15.4); Mean Corpuscular HGB Conc 32.9 g/dL (31.6-35.5); Mean Corpuscular Volume 91.2 fL (83.0-100.0); Mean Platelet Volume 10.3 fL (9.4-12.4); Platelet Count 265 K/mcL (140-400); Red Blood Count 3.73 M/mcL (3.82-4.97); Red Cell Distribution Width 12.4 % (11.5-14.5); White Blood Count 11.2 K/mcL (4.3-11.1)
[2021-03-11 03:47] LABS: Alanine Aminotransferase 88 Units/L (7-52); Albumin 3.2 g/dL (3.5-5.7); Albumin/Globulin Ratio 1.4 (1.1-2.2); Alkaline Phosphatase 57 Units/L (34-104); Aspartate Amino Transferase 22 Units/L (13-39); BUN/Creatinine Ratio 60 (6-26); Bilirubin,Total 0.6 mg/dL (0.3-1.0); Blood Urea Nitrogen 41 mg/dL (6-20); C-Reactive Protein < 5 mg/L (Less than 10); Calcium 9.6 mg/dL (8.6-10.3); Carbon Dioxide 30 mEq/L (23-29); Chloride 98 mEq/L (98-107); Globulin 2.3 g/dL (2.4-3.5); Glucose 163 mg/dL (70-105); Osmolality,Calculated 294 (280-300); Potassium 4.6 mEq/L (3.5-5.1); Sodium 135 mEq/L (136-145); Total Protein 5.5 g/dL (6.4-8.9); eGFR For African Americans > 60 (> 60); eGFR For Non-African Americans > 60 (> 60)
[2021-03-11] MEDS: Insulin LISPRO 300 UNITS/3 ML VIAL SUBQ SCH ×6 (03:56→23:14)
[2021-03-11 04:31] LABS: ABG Base Excess 2 mEq/L (-2 to 3); ABG HCO3 27 mEq/L (21-27); ABG Oxygen Saturation 91 % (95-98); ABG PCO2 39 mmHg (35-45); ABG PH 7.45 pH Units (7.32-7.45); ABG PO2 58 mmHg (85-104); ABG TCO2 28 mEq/L (20-26); Blood Gas VT 400 cc
[2021-03-11] MEDS: *HR* Enoxaparin 40 MG/0.4 ML SYRINGE SQ SCH ×2 (05:27→16:30)
[2021-03-11 08:04] LABS: ABG Base Excess 3 mEq/L (-2 to 3); ABG HCO3 28 mEq/L (21-27); ABG Oxygen Saturation 88 % (95-98); ABG PCO2 46 mmHg (35-45); ABG PO2 55 mmHg (85-104); ABG TCO2 30 mEq/L (20-26); Blood Gas Modality AF; Blood Gas VT 400 cc
[2021-03-11] MEDS: Piperacillin/Tazobactam 3.375 GM in 0.9 % Sodium Chloride Mini Bag 100 ML IVPB SCH ×3 (08:32→23:16)
[2021-03-11] MEDS: Pantoprazole 40 MG VIAL IVP SCH (08:32)
[2021-03-11] MEDS: Artificial Tears SOLN 15 ML BOTTLE BOTH EYES SCH ×5 (08:32→23:14)
[2021-03-11] MEDS: Furosemide 20 MG/2 ML VIAL IVP SCH ×2 (08:33→16:30)
[2021-03-11] MEDS: Dexamethasone Sodium Phos/PF 10 MG/ML VIAL IVP SCH (08:33)
[2021-03-11] MEDS: Chlorhexidine Rinse 15 ML MOUTHWASH MM SCH ×2 (08:33→19:39)
[2021-03-11] MEDS: Cholecalciferol (D-3) 1,000 UNIT (25MCG) TABLET PO SCH (08:34)
[2021-03-11] MEDS ORDERED: *HR* Labetalol 20 MG/4 ML SYRINGE IVP PRN (12:51)
[2021-03-11] MEDS ORDERED: Clinimix E 5%-15% SOLUTION 2,000 ML with MVI, adult with vitamin K 10 ML IVC SCH (17:00)
[2021-03-11] MEDS: Norepinephrine 4 MG/254 ML IV.SOLN IVC SCH ×2 (19:39→22:20)
[2021-03-11] MEDS: Dexmedetomidine HCl 400 MCG/100 ML MLS IVC SCH (23:52)
[2021-03-12] MEDS: Erythromycin OPTH Oint RIGHT EYE SCH ×2 (01:50→19:46)
[2021-03-12 03:22] LABS: VBG Ionized Calcium 1.32 mmol/L (1.15-1.35)
[2021-03-12] MEDS: Artificial Tears SOLN 15 ML BOTTLE BOTH EYES SCH ×6 (03:26→23:26)
[2021-03-12 03:39] LABS: Alanine Aminotransferase 105 Units/L (7-52); Albumin 3.8 g/dL (3.5-5.7); Albumin/Globulin Ratio 1.5 (1.1-2.2); Alkaline Phosphatase 73 Units/L (34-104); Aspartate Amino Transferase 36 Units/L (13-39); BUN/Creatinine Ratio 59 (6-26); Bilirubin,Total 0.7 mg/dL (0.3-1.0); Blood Urea Nitrogen 49 mg/dL (6-20); C-Reactive Protein < 5 mg/L (Less than 10); Calcium 10.4 mg/dL (8.6-10.3); Carbon Dioxide 29 mEq/L (23-29); Chloride 98 mEq/L (98-107); Globulin 2.6 g/dL (2.4-3.5); Glucose 212 mg/dL (70-105); Osmolality,Calculated 303 (280-300); Potassium 4.7 mEq/L (3.5-5.1); Sodium 137 mEq/L (136-145); Total Protein 6.4 g/dL (6.4-8.9); eGFR For African Americans > 60 (> 60); eGFR For Non-African Americans > 60 (> 60)
[2021-03-12 03:48] LABS: Hemoglobin 12.2 g/dL (11.5-15.4); Mean Corpuscular Hemoglobin 30.2 pg (28.0-33.3); Mean Corpuscular Volume 91.6 fL (83.0-100.0); Mean Platelet Volume 10.2 fL (9.4-12.4); Platelet Count 301 K/mcL (140-400); Red Blood Count 4.04 M/mcL (3.82-4.97); Red Cell Distribution Width 12.9 % (11.5-14.5)
[2021-03-12] MEDS: Insulin LISPRO 300 UNITS/3 ML VIAL SUBQ SCH ×4 (03:52→19:44)
[2021-03-12] MEDS: *HR* Enoxaparin 40 MG/0.4 ML SYRINGE SQ SCH ×2 (05:05→18:37)
[2021-03-12] MEDS: Dexmedetomidine HCl 400 MCG/100 ML MLS IVC SCH ×3 (05:05→18:53)
[2021-03-12 05:25] LABS: ABG Base Excess 2 mEq/L (-2 to 3); ABG HCO3 28 mEq/L (21-27); ABG Oxygen Saturation 91 % (95-98); ABG PCO2 47 mmHg (35-45); ABG PH 7.38 pH Units (7.32-7.45); ABG PO2 63 mmHg (85-104); ABG TCO2 29 mEq/L (20-26); Blood Gas Modality ASSIST CONTROL; Blood Gas VT 400 cc
[2021-03-12] MEDS: Furosemide 20 MG/2 ML VIAL IVP SCH ×2 (08:47→16:18)
[2021-03-12] MEDS: Piperacillin/Tazobactam 3.375 GM in 0.9 % Sodium Chloride Mini Bag 100 ML IVPB SCH ×2 (08:48→16:19)
[2021-03-12] MEDS: Chlorhexidine Rinse 15 ML MOUTHWASH MM SCH ×2 (08:49→19:46)
[2021-03-12] MEDS: Cholecalciferol (D-3) 1,000 UNIT (25MCG) TABLET PO SCH (08:50)
[2021-03-12] MEDS: Pantoprazole 40 MG VIAL IVP SCH (08:50)
[2021-03-12] MEDS: Dexamethasone Sodium Phos/PF 10 MG/ML VIAL IVP SCH (08:50)
[2021-03-12] MEDS: Vancomycin 1,500 MG/265 ML IV.SOLN IVPB SCH (14:01)
[2021-03-12] MEDS ORDERED: *HR* Labetalol 20 MG/4 ML SYRINGE IVP ONE (14:08)
[2021-03-12] MEDS: FentaNYL (PF) 2,500 MCG/50 ML IV.SOLN IVC SCH (16:04)
[2021-03-12] MEDS ORDERED: Clinimix 5%-20% SOLUTION 2,000 ML with MVI, adult with vitamin K 10 ML, ZN/CU/MN/SE 1... IVC SCH (17:00)
[2021-03-12] MEDS: Cefepime HCl 2,000 MG in Water for inj. (sterile) 20 ML IVP SCH (18:38)
[2021-03-12 19:36] LABS: Appearance of Body Fluid Cloudy (Clear); Volume of Body Fluid 11 mL
[2021-03-12] MEDS: MetroNIDAZOLE 500 MG/100 ML 500 MG/100 ML BAG IVPB SCH (23:27)
[2021-03-13] MEDS: Insulin LISPRO 300 UNITS/3 ML VIAL SUBQ SCH ×7 (00:23→23:43)
[2021-03-13] MEDS: Dexmedetomidine HCl 400 MCG/100 ML MLS IVC SCH ×2 (03:22→16:32)
[2021-03-13] MEDS: Artificial Tears SOLN 15 ML BOTTLE BOTH EYES SCH ×6 (04:30→23:42)
[2021-03-13 04:35] LABS: Hemoglobin 12.6 g/dL (11.5-15.4); Mean Corpuscular HGB Conc 34.1 g/dL (31.6-35.5); Mean Corpuscular Hemoglobin 31.4 pg (28.0-33.3); Mean Corpuscular Volume 92.3 fL (83.0-100.0); Mean Platelet Volume 10.6 fL (9.4-12.4); Platelet Count 289 K/mcL (140-400); Red Blood Count 4.01 M/mcL (3.82-4.97); Red Cell Distribution Width 13.2 % (11.5-14.5); White Blood Count 18.5 K/mcL (4.3-11.1)
[2021-03-13 04:53] LABS: VBG Ionized Calcium 1.28 mmol/L (1.15-1.35)
[2021-03-13 05:04] LABS: BUN/Creatinine Ratio 62 (6-26); Blood Urea Nitrogen 37 mg/dL (6-20); Calcium 9.6 mg/dL (8.6-10.3); Carbon Dioxide 28 mEq/L (23-29); Chloride 94 mEq/L (98-107); Glucose 180 mg/dL (70-105); Magnesium 2.3 mg/dL (1.6-2.6); Osmolality,Calculated 281 (280-300); Phosphorous 2.4 mg/dL (2.7-4.5); Potassium 4.2 mEq/L (3.5-5.1); Sodium 129 mEq/L (136-145); eGFR For African Americans > 60 (> 60); eGFR For Non-African Americans > 60 (> 60)
[2021-03-13 06:01] LABS: ABG Base Excess 2 mEq/L (-2 to 3); ABG HCO3 26 mEq/L (21-27); ABG Oxygen Saturation 92 % (95-98); ABG PCO2 40 mmHg (35-45); ABG PH 7.43 pH Units (7.32-7.45); ABG PO2 61 mmHg (85-104); ABG TCO2 28 mEq/L (20-26); Blood Gas Modality ASSIST CONTROL; Blood Gas VT 40 cc
[2021-03-13] MEDS: *HR* Enoxaparin 40 MG/0.4 ML SYRINGE SQ SCH ×2 (06:44→15:55)
[2021-03-13] MEDS: Cefepime HCl 2,000 MG in Water for inj. (sterile) 20 ML IVP SCH ×3 (06:44→23:45)
[2021-03-13] MEDS ORDERED: *HR* Labetalol 20 MG/4 ML SYRINGE IVP PRN (07:59)
[2021-03-13] MEDS: MetroNIDAZOLE 500 MG/100 ML 500 MG/100 ML BAG IVPB SCH ×3 (08:00→23:44)
[2021-03-13] MEDS: Furosemide 20 MG/2 ML VIAL IVP SCH ×2 (08:01→10:00)
[2021-03-13] MEDS: Chlorhexidine Rinse 15 ML MOUTHWASH MM SCH ×2 (08:05→20:05)
[2021-03-13] MEDS: Pantoprazole 40 MG VIAL IVP SCH (08:05)
[2021-03-13] MEDS: Cholecalciferol (D-3) 1,000 UNIT (25MCG) TABLET PO SCH (08:06)
[2021-03-13] MEDS: Erythromycin OPTH Oint RIGHT EYE SCH ×3 (08:47→20:06)
[2021-03-13] MEDS: FentaNYL (PF) 2,500 MCG/50 ML IV.SOLN IVC SCH (09:55)
[2021-03-13] MEDS: Norepinephrine 4 MG/254 ML IV.SOLN IVC SCH (12:52)
[2021-03-13] MEDS: Vancomycin 1,500 MG/265 ML IV.SOLN IVPB SCH (14:16)
[2021-03-13] MEDS ORDERED: Clinimix E 5%-15% SOLUTION 2,000 ML with MVI, adult with vitamin K 10 ML, ZN/CU/MN/SE... IVC SCH (17:00)
[2021-03-14] MEDS ORDERED: 0.9 % Sodium Chloride 1,000 ML ONE (02:18)
[2021-03-14] MEDS: FentaNYL (PF) 2,500 MCG/50 ML IV.SOLN IVC SCH (02:46)
[2021-03-14] MEDS: Artificial Tears SOLN 15 ML BOTTLE BOTH EYES SCH ×5 (03:56→20:19)
[2021-03-14] MEDS: Dexmedetomidine HCl 400 MCG/100 ML MLS IVC SCH ×2 (04:00→13:23)
[2021-03-14 04:12] LABS: VBG Ionized Calcium 1.35 mmol/L (1.15-1.35)
[2021-03-14 04:31] LABS: ABG Base Excess 1 mEq/L (-2 to 3); ABG HCO3 26 mEq/L (21-27); ABG Oxygen Saturation 94 % (95-98); ABG PCO2 43 mmHg (35-45); ABG PH 7.39 pH Units (7.32-7.45); ABG PO2 70 mmHg (85-104); ABG TCO2 27 mEq/L (20-26); Blood Gas VT 400 cc
[2021-03-14 04:40] LABS: Hematocrit 37.3 % (35.3-44.9); Mean Corpuscular HGB Conc 33.5 g/dL (31.6-35.5); Mean Corpuscular Hemoglobin 30.9 pg (28.0-33.3); Mean Platelet Volume 10.4 fL (9.4-12.4); Platelet Count 251 K/mcL (140-400); Red Blood Count 4.05 M/mcL (3.82-4.97); Red Cell Distribution Width 13.8 % (11.5-14.5); White Blood Count 13.3 K/mcL (4.3-11.1)
[2021-03-14 04:46] LABS: Hemoglobin 12.5 g/dL (11.5-15.4); Mean Corpuscular Volume 92.1 fL (83.0-100.0)
[2021-03-14] MEDS: *HR* Enoxaparin 40 MG/0.4 ML SYRINGE SQ SCH ×2 (05:03→16:18)
[2021-03-14] MEDS: Norepinephrine 4 MG/254 ML IV.SOLN IVC SCH ×2 (05:36→20:52)
[2021-03-14] MEDS: Insulin LISPRO 300 UNITS/3 ML VIAL SUBQ SCH ×5 (05:36→20:19)
[2021-03-14 06:08] LABS: BUN/Creatinine Ratio 56 (6-26); Blood Urea Nitrogen 35 mg/dL (6-20); Calcium 9.9 mg/dL (8.6-10.3); Carbon Dioxide 27 mEq/L (23-29); Chloride 105 mEq/L (98-107); Glucose 184 mg/dL (70-105); Magnesium 1.9 mg/dL (1.6-2.6); Osmolality,Calculated 301 (280-300); Phosphorous 3.4 mg/dL (2.7-4.5); Potassium 3.7 mEq/L (3.5-5.1); Sodium 139 mEq/L (136-145); eGFR For African Americans > 60 (> 60); eGFR For Non-African Americans > 60 (> 60)
[2021-03-14] MEDS: Pantoprazole 40 MG VIAL IVP SCH (08:09)
[2021-03-14] MEDS: MetroNIDAZOLE 500 MG/100 ML 500 MG/100 ML BAG IVPB SCH ×2 (08:09→15:39)
[2021-03-14] MEDS: Chlorhexidine Rinse 15 ML MOUTHWASH MM SCH ×2 (08:09→20:22)
[2021-03-14] MEDS: Cholecalciferol (D-3) 1,000 UNIT (25MCG) TABLET PO SCH (08:10)
[2021-03-14] MEDS: Furosemide 20 MG/2 ML VIAL IVP SCH (08:10)
[2021-03-14] MEDS: Cefepime HCl 2,000 MG in Water for inj. (sterile) 20 ML IVP SCH ×2 (08:10→15:39)
[2021-03-14] MEDS: Erythromycin OPTH Oint RIGHT EYE SCH ×3 (08:11→20:52)
[2021-03-14] MEDS: Midazolam HCl 50 MG/100 ML IV.SOLN IVC SCH ×2 (15:40→20:53)
[2021-03-14] MEDS ORDERED: Clinimix E 5%-15% SOLUTION 2,000 ML with MVI, adult with vitamin K 10 ML, ZN/CU/MN/SE... IVC SCH (17:00)
[2021-03-15] MEDS: Artificial Tears SOLN 15 ML BOTTLE BOTH EYES SCH ×3 (00:10→07:50)
[2021-03-15] MEDS: Insulin LISPRO 300 UNITS/3 ML VIAL SUBQ SCH ×7 (00:11→23:31)
[2021-03-15] MEDS: MetroNIDAZOLE 500 MG/100 ML 500 MG/100 ML BAG IVPB SCH ×4 (00:12→23:30)
[2021-03-15] MEDS: Cefepime HCl 2,000 MG in Water for inj. (sterile) 20 ML IVP SCH ×4 (00:12→23:29)
[2021-03-15 04:38] LABS: Basophils # 0.1 K/mcL (0.0-0.2); Basophils % 0.8 %; Eosinophils # 0.1 K/mcL (0.0-0.6); Eosinophils % 0.9 %; Hematocrit 40.2 % (35.3-44.9); Hemoglobin 13.3 g/dL (11.5-15.4); Immature Granulocytes % 2.3 % (0-4); Lymphocytes % 21.3 %; Mean Corpuscular HGB Conc 33.1 g/dL (31.6-35.5); Mean Corpuscular Hemoglobin 30.8 pg (28.0-33.3); Mean Corpuscular Volume 93.1 fL (83.0-100.0); Mean Platelet Volume 10.9 fL (9.4-12.4); Monocytes # 1.9 K/mcL (0.0-1.3); Monocytes % 13.6 %; Neutrophils # 8.5 K/mcL (1.6-8.9); Platelet Count 293 K/mcL (140-400); Red Blood Count 4.32 M/mcL (3.82-4.97); Red Cell Distribution Width 13.8 % (11.5-14.5); Segmented Neutrophils % 61.1 %; White Blood Count 13.9 K/mcL (4.3-11.1)
[2021-03-15 04:54] LABS: ABG Base Excess 0 mEq/L (-2 to 3); ABG HCO3 25 mEq/L (21-27); ABG Oxygen Saturation 93 % (95-98); ABG PCO2 43 mmHg (35-45); ABG PH 7.38 pH Units (7.32-7.45); ABG PO2 69 mmHg (85-104); ABG TCO2 27 mEq/L (20-26); Blood Gas Modality ASSIST CONTROL; Blood Gas VT 400 cc
[2021-03-15 04:58] LABS: BUN/Creatinine Ratio 53 (6-26); Blood Urea Nitrogen 32 mg/dL (6-20); Calcium 10.1 mg/dL (8.6-10.3); Carbon Dioxide 27 mEq/L (23-29); Chloride 107 mEq/L (98-107); Glucose 212 mg/dL (70-105); Magnesium 2.1 mg/dL (1.6-2.6); Osmolality,Calculated 305 (280-300); Phosphorous 2.6 mg/dL (2.7-4.5); Potassium 3.5 mEq/L (3.5-5.1); Sodium 141 mEq/L (136-145); eGFR For African Americans > 60 (> 60); eGFR For Non-African Americans > 60 (> 60)
[2021-03-15] MEDS: *HR* Enoxaparin 40 MG/0.4 ML SYRINGE SQ SCH ×2 (05:21→16:24)
[2021-03-15] MEDS ORDERED: Potassium Chloride 40 MEQ/200 ML BAG IVPB PRN (06:14)
[2021-03-15] MEDS ORDERED: Calcium Gluconate 1gm/50mL 1 GM/50 ML BAG IVPB PRN (06:14)
[2021-03-15] MEDS: Fluconazole 40 MG/ML UDC PO SCH (07:49)
[2021-03-15] MEDS: Nystatin SUSP 5 ML UD.LIQ PO SCH ×4 (07:50→20:27)
[2021-03-15] MEDS: Chlorhexidine Rinse 15 ML MOUTHWASH MM SCH ×2 (07:50→20:27)
[2021-03-15] MEDS: Cholecalciferol (D-3) 1,000 UNIT (25MCG) TABLET PO SCH (07:51)
[2021-03-15] MEDS: Furosemide 20 MG/2 ML VIAL IVP SCH (07:51)
[2021-03-15] MEDS: Pantoprazole 40 MG VIAL IVP SCH (07:51)
[2021-03-15] MEDS: Potassium Phosphate 44 MEQ in 0.9 % Sodium Chloride 250 ML IVPB PRN (07:52)
[2021-03-15] MEDS: Erythromycin OPTH Oint RIGHT EYE SCH ×3 (07:52→20:28)
[2021-03-15 08:21] LABS: ABG Base Excess 3 mEq/L (-2 to 3); ABG HCO3 27 mEq/L (21-27); ABG Oxygen Saturation 92 % (95-98); ABG PCO2 40 mmHg (35-45); ABG PH 7.44 pH Units (7.32-7.45); ABG PO2 62 mmHg (85-104); ABG TCO2 28 mEq/L (20-26); Blood Gas Pressure Support 7 cm H2O
[2021-03-15] MEDS ORDERED: *HR* Metoprolol 5 MG/5 ML VIAL IVP ONE ×2 (10:40→10:41)
[2021-03-15] MEDS ORDERED: lisinopriL 10 MG TABLET PO SCH (14:30)
[2021-03-15] MEDS ORDERED: Clinimix E 5%-15% SOLUTION 2,000 ML with MVI, adult with vitamin K 10 ML, ZN/CU/MN/SE... IVC SCH (17:00)
[2021-03-15] MEDS: Dexmedetomidine HCl 400 MCG/100 ML MLS IVC SCH (23:00)
[2021-03-16] MEDS: Neosporin OINT 15 GM TUBE TP SCH ×3 (01:00→19:39)
[2021-03-16 04:01] LABS: Basophils # 0.1 K/mcL (0.0-0.2); Basophils % 0.9 %; Eosinophils # 0.1 K/mcL (0.0-0.6); Eosinophils % 1.1 %; Immature Granulocytes % 1.7 % (0-4); Lymphocytes # 1.7 K/mcL (0.6-4.6); Lymphocytes % 18.5 %; Mean Corpuscular HGB Conc 31.6 g/dL (31.6-35.5); Mean Corpuscular Hemoglobin 29.9 pg (28.0-33.3); Mean Corpuscular Volume 94.5 fL (83.0-100.0); Mean Platelet Volume 10.9 fL (9.4-12.4); Monocytes # 1.2 K/mcL (0.0-1.3); Monocytes % 12.9 %; Neutrophils # 5.8 K/mcL (1.6-8.9); Platelet Count 218 K/mcL (140-400); Red Blood Count 4.02 M/mcL (3.82-4.97); Segmented Neutrophils % 64.9 %
[2021-03-16 04:22] LABS: BUN/Creatinine Ratio 57 (6-26); Blood Urea Nitrogen 34 mg/dL (6-20); Calcium 9.4 mg/dL (8.6-10.3); Carbon Dioxide 25 mEq/L (23-29); Chloride 113 mEq/L (98-107); Glucose 273 mg/dL (70-105); Magnesium 2.1 mg/dL (1.6-2.6); Osmolality,Calculated 315 (280-300); Phosphorous 2.4 mg/dL (2.7-4.5); Potassium 3.9 mEq/L (3.5-5.1); Sodium 144 mEq/L (136-145); Triglycerides 369 mg/dL (< 150); eGFR For African Americans > 60 (> 60); eGFR For Non-African Americans > 60 (> 60)
[2021-03-16] MEDS: Insulin LISPRO 300 UNITS/3 ML VIAL SUBQ SCH ×5 (04:22→20:00)
[2021-03-16] MEDS: *HR* Enoxaparin 40 MG/0.4 ML SYRINGE SQ SCH ×2 (06:16→17:12)
[2021-03-16] MEDS: Dexmedetomidine HCl 400 MCG/100 ML MLS IVC SCH (07:40)
[2021-03-16] MEDS: Potassium Phosphate 44 MEQ in 0.9 % Sodium Chloride 250 ML IVPB PRN (08:19)
[2021-03-16] MEDS: Nystatin SUSP 5 ML UD.LIQ PO SCH ×4 (08:28→19:39)
[2021-03-16] MEDS: MetroNIDAZOLE 500 MG/100 ML 500 MG/100 ML BAG IVPB SCH ×2 (08:28→17:13)
[2021-03-16] MEDS: Chlorhexidine Rinse 15 ML MOUTHWASH MM SCH ×2 (08:28→19:39)
[2021-03-16] MEDS: Pantoprazole 40 MG VIAL IVP SCH (08:29)
[2021-03-16] MEDS: Cholecalciferol (D-3) 1,000 UNIT (25MCG) TABLET PO SCH (08:29)
[2021-03-16] MEDS: Cefepime HCl 2,000 MG in Water for inj. (sterile) 20 ML IVP SCH ×2 (08:29→17:12)
[2021-03-16] MEDS: Erythromycin OPTH Oint RIGHT EYE SCH ×3 (08:30→19:39)
[2021-03-16] MEDS: Furosemide 20 MG/2 ML VIAL IVP SCH (08:30)
[2021-03-16] MEDS: Fluconazole 40 MG/ML UDC PO SCH (08:48)
[2021-03-16] MEDS ORDERED: Clinimix E 5%-15% SOLUTION 2,000 ML with MVI, adult with vitamin K 10 ML, ZN/CU/MN/SE... IVC SCH (17:00)
[2021-03-16] MEDS ORDERED: Furosemide 40 MG/4 ML VIAL IVP ONE (23:23)
[2021-03-17] MEDS: Insulin LISPRO 300 UNITS/3 ML VIAL SUBQ SCH ×7 (00:07→23:39)
[2021-03-17] MEDS: Dexmedetomidine HCl 400 MCG/100 ML MLS IVC SCH ×2 (00:30→11:36)
[2021-03-17] MEDS: Acetylcysteine 10% 2 ML INHSOL IH SCH ×4 (03:44→19:55)
[2021-03-17] MEDS: Ipratropium/Albuterol Neb 3 ML IH SCH ×5 (03:44→19:55)
[2021-03-17 05:03] LABS: Basophils # 0.1 K/mcL (0.0-0.2); Basophils % 0.8 %; Eosinophils # 0.2 K/mcL (0.0-0.6); Eosinophils % 1.1 %; Hematocrit 41.2 % (35.3-44.9); Hemoglobin 12.9 g/dL (11.5-15.4); Immature Granulocytes % 1.4 % (0-4); Lymphocytes # 1.8 K/mcL (0.6-4.6); Lymphocytes % 13.6 %; Mean Corpuscular HGB Conc 31.3 g/dL (31.6-35.5); Mean Corpuscular Volume 95.8 fL (83.0-100.0); Mean Platelet Volume 11.4 fL (9.4-12.4); Monocytes # 1.6 K/mcL (0.0-1.3); Neutrophils # 9.3 K/mcL (1.6-8.9); Platelet Count 240 K/mcL (140-400); Red Cell Distribution Width 14.3 % (11.5-14.5); Segmented Neutrophils % 71.1 %; White Blood Count 13.1 K/mcL (4.3-11.1)
[2021-03-17 05:07] LABS: BUN/Creatinine Ratio 52 (6-26); Blood Urea Nitrogen 34 mg/dL (6-20); Calcium 10.4 mg/dL (8.6-10.3); Carbon Dioxide 26 mEq/L (23-29); Chloride 109 mEq/L (98-107); Glucose 269 mg/dL (70-105); Magnesium 2.1 mg/dL (1.6-2.6); Osmolality,Calculated 309 (280-300); Phosphorous 3.1 mg/dL (2.7-4.5); Potassium 3.9 mEq/L (3.5-5.1); Sodium 141 mEq/L (136-145); eGFR For African Americans > 60 (> 60); eGFR For Non-African Americans > 60 (> 60)
[2021-03-17] MEDS: *HR* Enoxaparin 40 MG/0.4 ML SYRINGE SQ SCH ×2 (05:39→18:08)
[2021-03-17] MEDS: Nystatin SUSP 5 ML UD.LIQ PO SCH ×4 (08:12→19:23)
[2021-03-17] MEDS: Chlorhexidine Rinse 15 ML MOUTHWASH MM SCH ×2 (08:12→19:24)
[2021-03-17] MEDS: Pantoprazole 40 MG VIAL IVP SCH (08:13)
[2021-03-17] MEDS: Furosemide 20 MG/2 ML VIAL IVP SCH (08:13)
[2021-03-17] MEDS: Cholecalciferol (D-3) 1,000 UNIT (25MCG) TABLET PO SCH (08:13)
[2021-03-17] MEDS: Neosporin OINT 15 GM TUBE TP SCH ×2 (08:14→19:25)
[2021-03-17] MEDS: Erythromycin OPTH Oint RIGHT EYE SCH ×3 (08:14→19:25)
[2021-03-17] MEDS: Fluconazole 40 MG/ML UDC PO SCH (08:52)
[2021-03-17] MEDS ORDERED: Clinimix E 5%-15% SOLUTION 2,000 ML with MVI, adult with vitamin K 10 ML, ZN/CU/MN/SE... IVC SCH (17:00)
[2021-03-17] MEDS: MethylPREDNISolone 40 MG/ML VIAL IVP SCH (18:08)
[2021-03-17] MEDS ORDERED: Furosemide 20 MG/2 ML VIAL IVP ONE (20:30)
[2021-03-17] MEDS: Ondansetron 4 MG/2 ML VIAL IVP PRN (20:55)
[2021-03-18] MEDS: Dexmedetomidine HCl 400 MCG/100 ML MLS IVC SCH ×2 (00:01→13:55)
[2021-03-18] MEDS: Ipratropium/Albuterol Neb 3 ML IH SCH ×7 (00:08→23:33)
[2021-03-18] MEDS: Acetylcysteine 10% 2 ML INHSOL IH SCH ×4 (03:49→20:56)
[2021-03-18 04:06] LABS: Basophils # 0.1 K/mcL (0.0-0.2); Basophils % 0.4 %; Hematocrit 37.5 % (35.3-44.9); Hemoglobin 12.1 g/dL (11.5-15.4); Immature Granulocytes % 1.3 % (0-4); Lymphocytes # 0.9 K/mcL (0.6-4.6); Lymphocytes % 8.4 %; Mean Corpuscular HGB Conc 32.3 g/dL (31.6-35.5); Mean Corpuscular Hemoglobin 31.1 pg (28.0-33.3); Mean Corpuscular Volume 96.4 fL (83.0-100.0); Mean Platelet Volume 10.9 fL (9.4-12.4); Monocytes # 0.6 K/mcL (0.0-1.3); Monocytes % 5.6 %; Neutrophils # 9.4 K/mcL (1.6-8.9); Platelet Count 219 K/mcL (140-400); Red Blood Count 3.89 M/mcL (3.82-4.97); Red Cell Distribution Width 14.1 % (11.5-14.5); Segmented Neutrophils % 84.3 %; White Blood Count 11.1 K/mcL (4.3-11.1)
[2021-03-18 04:10] LABS: VBG Ionized Calcium 1.45 mmol/L (1.15-1.35)
[2021-03-18 04:28] LABS: BUN/Creatinine Ratio 65 (6-26); Blood Urea Nitrogen 43 mg/dL (6-20); Calcium 10.5 mg/dL (8.6-10.3); Carbon Dioxide 26 mEq/L (23-29); Chloride 107 mEq/L (98-107); Glucose 318 mg/dL (70-105); Magnesium 2.3 mg/dL (1.6-2.6); Osmolality,Calculated 311 (280-300); Phosphorous 4.7 mg/dL (2.7-4.5); Sodium 139 mEq/L (136-145); eGFR For African Americans > 60 (> 60); eGFR For Non-African Americans > 60 (> 60)
[2021-03-18] MEDS: Insulin LISPRO 300 UNITS/3 ML VIAL SUBQ SCH ×4 (04:57→16:36)
[2021-03-18] MEDS: MethylPREDNISolone 40 MG/ML VIAL IVP SCH ×2 (05:22→16:34)
[2021-03-18] MEDS: *HR* Enoxaparin 40 MG/0.4 ML SYRINGE SQ SCH ×2 (05:22→16:37)
[2021-03-18] MEDS: Fluconazole 40 MG/ML UDC PO SCH (07:55)
[2021-03-18] MEDS: Pantoprazole 40 MG VIAL IVP SCH (07:55)
[2021-03-18] MEDS: Nystatin SUSP 5 ML UD.LIQ PO SCH ×4 (07:55→20:31)
[2021-03-18] MEDS: Cholecalciferol (D-3) 1,000 UNIT (25MCG) TABLET PO SCH (07:55)
[2021-03-18] MEDS: Furosemide 20 MG/2 ML VIAL IVP SCH (07:55)
[2021-03-18] MEDS: Neosporin OINT 15 GM TUBE TP SCH ×2 (07:56→20:30)
[2021-03-18] MEDS: Erythromycin OPTH Oint RIGHT EYE SCH ×3 (07:56→20:29)
[2021-03-18] MEDS: *HR* Metoprolol 5 MG/5 ML VIAL IVP PRN (09:53)
[2021-03-18] MEDS: Furosemide 20 MG TABLET PO SCH ×2 (15:24→16:36)
[2021-03-18] MEDS ORDERED: Clinimix E 5%-15% SOLUTION 2,000 ML with MVI, adult with vitamin K 10 ML, ZN/CU/MN/SE... IVC SCH (17:00)
[2021-03-19] MEDS: Insulin LISPRO 300 UNITS/3 ML VIAL SUBQ SCH ×4 (00:15→18:36)
[2021-03-19 03:53] LABS: Basophils # 0.1 K/mcL (0.0-0.2); Basophils % 0.3 %; Hemoglobin 12.5 g/dL (11.5-15.4); Immature Granulocytes % 1.4 % (0-4); Lymphocytes # 1.6 K/mcL (0.6-4.6); Lymphocytes % 8.7 %; Mean Corpuscular HGB Conc 31.3 g/dL (31.6-35.5); Mean Corpuscular Hemoglobin 30.3 pg (28.0-33.3); Mean Corpuscular Volume 97.1 fL (83.0-100.0); Mean Platelet Volume 10.9 fL (9.4-12.4); Monocytes # 1.4 K/mcL (0.0-1.3); Monocytes % 7.3 %; Platelet Count 280 K/mcL (140-400); Red Blood Count 4.12 M/mcL (3.82-4.97); Red Cell Distribution Width 14.5 % (11.5-14.5); Segmented Neutrophils % 82.3 %
[2021-03-19 04:04] LABS: Neutrophils # 15.6 K/mcL (1.6-8.9); White Blood Count 18.9 K/mcL (4.3-11.1)
[2021-03-19 04:09] LABS: BUN/Creatinine Ratio 73 (6-26); Blood Urea Nitrogen 48 mg/dL (6-20); Carbon Dioxide 26 mEq/L (23-29); Chloride 104 mEq/L (98-107); Glucose 402 mg/dL (70-105); Magnesium 2.4 mg/dL (1.6-2.6); Osmolality,Calculated 309 (280-300); Phosphorous 4.3 mg/dL (2.7-4.5); Potassium 4.9 mEq/L (3.5-5.1); Sodium 135 mEq/L (136-145); eGFR For African Americans > 60 (> 60); eGFR For Non-African Americans > 60 (> 60)
[2021-03-19] MEDS: Acetylcysteine 10% 2 ML INHSOL IH SCH ×4 (04:18→19:14)
[2021-03-19] MEDS: Ipratropium/Albuterol Neb 3 ML IH SCH ×6 (04:18→23:24)
[2021-03-19] MEDS: *HR* Enoxaparin 40 MG/0.4 ML SYRINGE SQ SCH ×2 (06:01→16:31)
[2021-03-19] MEDS: MethylPREDNISolone 40 MG/ML VIAL IVP SCH (06:02)
[2021-03-19] MEDS ORDERED: Insulin DETEMIR 100 UNIT/ML X5UNITS SUBQ SCH (06:45)
[2021-03-19] MEDS: Furosemide 20 MG TABLET PO SCH ×3 (08:12→16:32)
[2021-03-19] MEDS: Neosporin OINT 15 GM TUBE TP SCH ×2 (08:20→20:03)
[2021-03-19] MEDS: Cholecalciferol (D-3) 1,000 UNIT (25MCG) TABLET PO SCH (08:20)
[2021-03-19] MEDS: Pantoprazole 40 MG VIAL IVP SCH (08:20)
[2021-03-19] MEDS: Fluconazole 40 MG/ML UDC PO SCH (08:20)
[2021-03-19] MEDS: Erythromycin OPTH Oint RIGHT EYE SCH (08:20)
[2021-03-19] MEDS: Nystatin SUSP 5 ML UD.LIQ PO SCH ×4 (08:20→19:40)
[2021-03-19] MEDS: *HR* Metoprolol 5 MG/5 ML VIAL IVP PRN (11:40)
[2021-03-19] MEDS: Dexmedetomidine HCl 400 MCG/100 ML MLS IVC SCH (16:43)
[2021-03-19] MEDS ORDERED: Insulin DETEMIR 100 UNIT/ML X5UNITS SUBQ ONE (16:45)
[2021-03-19] MEDS ORDERED: Clinimix E 5%-15% SOLUTION 2,000 ML with MVI, adult with vitamin K 10 ML, ZN/CU/MN/SE... IVC SCH (17:00)
[2021-03-19] MEDS: Ondansetron 4 MG/2 ML VIAL IVP PRN (18:24)
[2021-03-19] MEDS: Insulin DETEMIR 100 UNIT/ML X5UNITS SUBQ SCH (19:40)
[2021-03-20] MEDS: Insulin LISPRO 300 UNITS/3 ML VIAL SUBQ SCH ×5 (00:36→19:32)
[2021-03-20] MEDS: Dexmedetomidine HCl 400 MCG/100 ML MLS IVC SCH ×2 (02:31→22:52)
[2021-03-20] MEDS: Acetylcysteine 10% 2 ML INHSOL IH SCH ×4 (03:24→20:05)
[2021-03-20] MEDS: Ipratropium/Albuterol Neb 3 ML IH SCH ×5 (03:24→20:05)
[2021-03-20 04:33] LABS: VBG Ionized Calcium 1.56 mmol/L (1.15-1.35)
[2021-03-20 04:37] LABS: Basophils # 0.1 K/mcL (0.0-0.2); Basophils % 0.3 %; Eosinophils % 0.3 %; Hematocrit 39.2 % (35.3-44.9); Hemoglobin 12.2 g/dL (11.5-15.4); Immature Granulocytes % 1.1 % (0-4); Lymphocytes # 2.1 K/mcL (0.6-4.6); Lymphocytes % 13.8 %; Mean Corpuscular HGB Conc 31.1 g/dL (31.6-35.5); Mean Corpuscular Hemoglobin 30.1 pg (28.0-33.3); Mean Corpuscular Volume 96.8 fL (83.0-100.0); Mean Platelet Volume 11.1 fL (9.4-12.4); Monocytes # 1.7 K/mcL (0.0-1.3); Monocytes % 11.3 %; Neutrophils # 10.8 K/mcL (1.6-8.9); Platelet Count 246 K/mcL (140-400); Red Blood Count 4.05 M/mcL (3.82-4.97); Red Cell Distribution Width 14.9 % (11.5-14.5); Segmented Neutrophils % 73.2 %; White Blood Count 14.8 K/mcL (4.3-11.1)
[2021-03-20 04:49] LABS: BUN/Creatinine Ratio 82 (6-26); Blood Urea Nitrogen 60 mg/dL (6-20); Calcium 11.2 mg/dL (8.6-10.3); Carbon Dioxide 26 mEq/L (23-29); Chloride 108 mEq/L (98-107); Glucose 168 mg/dL (70-105); Magnesium 2.4 mg/dL (1.6-2.6); Osmolality,Calculated 311 (280-300); Phosphorous 4.5 mg/dL (2.7-4.5); Potassium 4.2 mEq/L (3.5-5.1); Sodium 140 mEq/L (136-145); eGFR For African Americans > 60 (> 60); eGFR For Non-African Americans > 60 (> 60)
[2021-03-20] MEDS: *HR* Enoxaparin 40 MG/0.4 ML SYRINGE SQ SCH ×2 (05:16→17:03)
[2021-03-20] MEDS ORDERED: MethylPREDNISolone 40 MG/ML VIAL IVP SCH (09:00)
[2021-03-20] MEDS ORDERED: Furosemide 20 MG TABLET PO SCH (09:00)
[2021-03-20] MEDS: Fluconazole 40 MG/ML UDC PO SCH (09:01)
[2021-03-20] MEDS: Nystatin SUSP 5 ML UD.LIQ PO SCH (09:02)
[2021-03-20] MEDS: Pantoprazole 40 MG VIAL IVP SCH (09:02)
[2021-03-20] MEDS: Insulin DETEMIR 100 UNIT/ML X5UNITS SUBQ SCH ×2 (09:02→19:33)
[2021-03-20] MEDS: Cholecalciferol (D-3) 1,000 UNIT (25MCG) TABLET PO SCH (09:03)
[2021-03-20] MEDS: Neosporin OINT 15 GM TUBE TP SCH ×2 (09:03→19:34)
[2021-03-20] MEDS ORDERED: E-Z-PAQUE (BARIUM SULF) SUSP 1 BOTTLE PO ONE (11:58)
[2021-03-20] MEDS ORDERED: E-Z-HD (BARIUM SULF) SUSPENSION PO ONE (11:58)
[2021-03-20] MEDS: Simethicone 80 MG TAB.CHEW PO PRN (15:17)
[2021-03-20] MEDS ORDERED: Clinimix E 5%-15% SOLUTION 2,000 ML with MVI, adult with vitamin K 10 ML, ZN/CU/MN/SE... IVC SCH (17:00)
[2021-03-20] MEDS: *HR* Metoprolol 5 MG/5 ML VIAL IVP PRN (20:24)
[2021-03-21] MEDS: Ipratropium/Albuterol Neb 3 ML IH SCH ×7 (00:02→23:17)
[2021-03-21 04:21] LABS: BUN/Creatinine Ratio 83 (6-26); Blood Urea Nitrogen 53 mg/dL (6-20); Calcium 10.6 mg/dL (8.6-10.3); Carbon Dioxide 25 mEq/L (23-29); Chloride 105 mEq/L (98-107); Glucose 282 mg/dL (70-105); Magnesium 2.3 mg/dL (1.6-2.6); Osmolality,Calculated 307 (280-300); Phosphorous 3.5 mg/dL (2.7-4.5); Potassium 4.5 mEq/L (3.5-5.1); Sodium 136 mEq/L (136-145); eGFR For African Americans > 60 (> 60); eGFR For Non-African Americans > 60 (> 60)
[2021-03-21] MEDS: Acetylcysteine 10% 2 ML INHSOL IH SCH ×4 (04:22→20:12)
[2021-03-21 04:36] LABS: VBG Ionized Calcium 1.52 mmol/L (1.15-1.35)
[2021-03-21] MEDS: *HR* Enoxaparin 40 MG/0.4 ML SYRINGE SQ SCH ×2 (05:14→16:56)
[2021-03-21] MEDS: Insulin LISPRO 300 UNITS/3 ML VIAL SUBQ SCH ×4 (08:26→20:43)
[2021-03-21] MEDS: predniSONE 10 MG TABLET PO SCH (08:27)
[2021-03-21] MEDS: Cholecalciferol (D-3) 1,000 UNIT (25MCG) TABLET PO SCH (08:27)
[2021-03-21] MEDS: Pantoprazole 40 MG VIAL IVP SCH (08:28)
[2021-03-21] MEDS: Insulin DETEMIR 100 UNIT/ML X5UNITS SUBQ SCH ×2 (08:28→20:42)
[2021-03-21] MEDS: Fluconazole 100 MG TABLET PO SCH (08:28)
[2021-03-21] MEDS: Neosporin OINT 15 GM TUBE TP SCH ×2 (08:38→20:43)
[2021-03-21] MEDS: Dexmedetomidine HCl 400 MCG/100 ML MLS IVC SCH ×2 (11:58→22:19)
[2021-03-21] MEDS: Ondansetron 4 MG/2 ML VIAL IVP PRN (13:00)
[2021-03-21] MEDS ORDERED: Clinimix E 5%-15% SOLUTION 2,000 ML with MVI, adult with vitamin K 10 ML, ZN/CU/MN/SE... IVC SCH (17:00)
[2021-03-21] MEDS: Docusate Oral Soln 100 MG/10 ML UDC GTUBE SCH (20:42)
[2021-03-22] MEDS: Ondansetron 4 MG/2 ML VIAL IVP PRN ×2 (01:26→23:22)
[2021-03-22 03:31] LABS: Basophils % 0.1 %; Eosinophils % 0.2 %; Hematocrit 33.8 % (35.3-44.9); Hemoglobin 10.7 g/dL (11.5-15.4); Immature Granulocytes % 1.1 % (0-4); Lymphocytes # 1.1 K/mcL (0.6-4.6); Lymphocytes % 12.4 %; Mean Corpuscular HGB Conc 31.7 g/dL (31.6-35.5); Mean Corpuscular Hemoglobin 30.4 pg (28.0-33.3); Monocytes # 0.8 K/mcL (0.0-1.3); Platelet Count 163 K/mcL (140-400); Red Blood Count 3.52 M/mcL (3.82-4.97); Red Cell Distribution Width 14.5 % (11.5-14.5); Segmented Neutrophils % 77.2 %; White Blood Count 9.1 K/mcL (4.3-11.1)
[2021-03-22] MEDS: Ipratropium/Albuterol Neb 3 ML IH SCH ×6 (04:02→23:55)
[2021-03-22] MEDS: Acetylcysteine 10% 2 ML INHSOL IH SCH ×4 (04:02→20:16)
[2021-03-22 04:34] LABS: BUN/Creatinine Ratio 85 (6-26); Blood Urea Nitrogen 46 mg/dL (6-20); Calcium 10.6 mg/dL (8.6-10.3); Carbon Dioxide 27 mEq/L (23-29); Chloride 105 mEq/L (98-107); Glucose 243 mg/dL (70-105); Magnesium 2.2 mg/dL (1.6-2.6); Osmolality,Calculated 304 (280-300); Phosphorous 3.7 mg/dL (2.7-4.5); Potassium 4.5 mEq/L (3.5-5.1); Sodium 137 mEq/L (136-145); eGFR For African Americans > 60 (> 60); eGFR For Non-African Americans > 60 (> 60)
[2021-03-22] MEDS: *HR* Enoxaparin 40 MG/0.4 ML SYRINGE SQ SCH ×2 (06:16→16:28)
[2021-03-22] MEDS: Dexmedetomidine HCl 400 MCG/100 ML MLS IVC SCH ×3 (06:17→22:10)
[2021-03-22] MEDS: Cholecalciferol (D-3) 1,000 UNIT (25MCG) TABLET PO SCH (08:35)
[2021-03-22] MEDS: Docusate Oral Soln 100 MG/10 ML UDC GTUBE SCH ×2 (08:35→20:11)
[2021-03-22] MEDS: Fluconazole 100 MG TABLET PO SCH (08:36)
[2021-03-22] MEDS: Pantoprazole 40 MG VIAL IVP SCH (08:36)
[2021-03-22] MEDS: predniSONE 10 MG TABLET PO SCH (08:36)
[2021-03-22] MEDS: Neosporin OINT 15 GM TUBE TP SCH ×2 (08:37→20:12)
[2021-03-22] MEDS: Insulin LISPRO 300 UNITS/3 ML VIAL SUBQ SCH ×4 (08:51→20:11)
[2021-03-22] MEDS: Insulin DETEMIR 100 UNIT/ML X5UNITS SUBQ SCH ×2 (08:52→20:11)
[2021-03-22 11:01] LABS: INR 1.1; Prothrombin Time 12.2 Seconds (9.4-12.1)
[2021-03-22 11:03] LABS: Activated Partial Thrombo Time 33.1 Seconds (26.0-36.0)
[2021-03-22] MEDS ORDERED: Clinimix E 5%-15% SOLUTION 2,000 ML with MVI, adult with vitamin K 10 ML, ZN/CU/MN/SE... IVC SCH (17:00)
[2021-03-23 03:45] LABS: VBG Ionized Calcium 1.53 mmol/L (1.15-1.35)
[2021-03-23 03:46] LABS: Basophils % 0.2 %; Eosinophils # 0.1 K/mcL (0.0-0.6); Eosinophils % 0.8 %; Hematocrit 31.5 % (35.3-44.9); Immature Granulocytes % 1.6 % (0-4); Lymphocytes # 1.1 K/mcL (0.6-4.6); Mean Corpuscular HGB Conc 31.7 g/dL (31.6-35.5); Mean Corpuscular Hemoglobin 30.4 pg (28.0-33.3); Mean Corpuscular Volume 95.7 fL (83.0-100.0); Mean Platelet Volume 11.1 fL (9.4-12.4); Monocytes # 0.7 K/mcL (0.0-1.3); Monocytes % 11.1 %; Neutrophils # 4.3 K/mcL (1.6-8.9); Platelet Count 145 K/mcL (140-400); Red Blood Count 3.29 M/mcL (3.82-4.97); Red Cell Distribution Width 14.1 % (11.5-14.5); Segmented Neutrophils % 69.3 %
[2021-03-23 03:47] LABS: White Blood Count 6.2 K/mcL (4.3-11.1)
[2021-03-23 03:58] LABS: BUN/Creatinine Ratio 83 (6-26); Blood Urea Nitrogen 43 mg/dL (6-20); Calcium 9.9 mg/dL (8.6-10.3); Carbon Dioxide 29 mEq/L (23-29); Chloride 102 mEq/L (98-107); Glucose 201 mg/dL (70-105); Osmolality,Calculated 295 (280-300); Phosphorous 3.5 mg/dL (2.7-4.5); Potassium 4.5 mEq/L (3.5-5.1); Sodium 134 mEq/L (136-145); Triglycerides 249 mg/dL (< 150); eGFR For African Americans > 60 (> 60); eGFR For Non-African Americans > 60 (> 60)
[2021-03-23] MEDS: Acetylcysteine 10% 2 ML INHSOL IH SCH ×4 (04:01→20:22)
[2021-03-23] MEDS: Ipratropium/Albuterol Neb 3 ML IH SCH ×6 (04:01→23:57)
[2021-03-23] MEDS: Dexmedetomidine HCl 400 MCG/100 ML MLS IVC SCH (06:34)
[2021-03-23] MEDS: Docusate Oral Soln 100 MG/10 ML UDC GTUBE SCH ×2 (08:18→21:01)
[2021-03-23] MEDS: Pantoprazole 40 MG VIAL IVP SCH (08:18)
[2021-03-23] MEDS: Cholecalciferol (D-3) 1,000 UNIT (25MCG) TABLET PO SCH (08:19)
[2021-03-23] MEDS: Neosporin OINT 15 GM TUBE TP SCH ×2 (08:20→21:23)
[2021-03-23] MEDS: Insulin DETEMIR 100 UNIT/ML X5UNITS SUBQ SCH ×2 (08:28→21:01)
[2021-03-23] MEDS: Insulin LISPRO 300 UNITS/3 ML VIAL SUBQ SCH ×4 (08:28→21:01)
[2021-03-23 14:06] LABS: Red Blood Cell,CSF < 2000 RBC/mcL
[2021-03-23 14:08] LABS: Appearance,CSF Clear (Clear)
[2021-03-23 15:10] LABS: Total Protein,CSF 74 mg/dL (15-45)
[2021-03-23 15:13] LABS: Glucose,CSF 120 mg/dL (40-70)
[2021-03-23] MEDS: predniSONE 10 MG TABLET PO SCH (15:55)
[2021-03-23] MEDS: Fluconazole 100 MG TABLET PO SCH (15:55)
[2021-03-23] MEDS ORDERED: Clinimix E 5%-15% SOLUTION 2,000 ML with MVI, adult with vitamin K 10 ML, ZN/CU/MN/SE... IVC SCH (17:00)
[2021-03-23] MEDS: *HR* Enoxaparin 40 MG/0.4 ML SYRINGE SQ SCH (17:51)
[2021-03-23] MEDS: Immune Glob, Gamma (Gammagard) 30 GM/300 ML INFUS..BTL IVC SCH (21:53)
[2021-03-24] MEDS: Immune Glob, Gamma (Gammagard) 5 GM/50 ML INFUS..BTL IVC SCH ×2 (00:23→22:19)
[2021-03-24] MEDS: Dexmedetomidine HCl 400 MCG/100 ML MLS IVC SCH (03:29)
[2021-03-24 03:32] LABS: Basophils % 0.4 %; Eosinophils % 0.1 %; Hematocrit 33.1 % (35.3-44.9); Hemoglobin 11.1 g/dL (11.5-15.4); Immature Granulocytes % 3.9 % (0-4); Lymphocytes # 0.9 K/mcL (0.6-4.6); Lymphocytes % 10.2 %; Mean Corpuscular HGB Conc 33.5 g/dL (31.6-35.5); Mean Corpuscular Hemoglobin 31.1 pg (28.0-33.3); Mean Corpuscular Volume 92.7 fL (83.0-100.0); Mean Platelet Volume 10.5 fL (9.4-12.4); Monocytes # 0.8 K/mcL (0.0-1.3); Monocytes % 8.9 %; Neutrophils # 6.6 K/mcL (1.6-8.9); Platelet Count 160 K/mcL (140-400); Red Blood Count 3.57 M/mcL (3.82-4.97); Red Cell Distribution Width 14.2 % (11.5-14.5); Segmented Neutrophils % 76.5 %; White Blood Count 8.6 K/mcL (4.3-11.1)
[2021-03-24] MEDS: Acetylcysteine 10% 2 ML INHSOL IH SCH ×4 (03:45→19:33)
[2021-03-24] MEDS: Ipratropium/Albuterol Neb 3 ML IH SCH ×6 (03:45→23:19)
[2021-03-24 03:48] LABS: VBG Ionized Calcium 1.35 mmol/L (1.15-1.35)
[2021-03-24 03:55] LABS: BUN/Creatinine Ratio 68 (6-26); Blood Urea Nitrogen 27 mg/dL (6-20); Calcium 9.6 mg/dL (8.6-10.3); Carbon Dioxide 27 mEq/L (23-29); Chloride 100 mEq/L (98-107); Glucose 126 mg/dL (70-105); Magnesium 1.9 mg/dL (1.6-2.6); Osmolality,Calculated 281 (280-300); Phosphorous 3.4 mg/dL (2.7-4.5); Potassium 4.2 mEq/L (3.5-5.1); Sodium 132 mEq/L (136-145); eGFR For African Americans > 60 (> 60); eGFR For Non-African Americans > 60 (> 60)
[2021-03-24] MEDS: *HR* Enoxaparin 40 MG/0.4 ML SYRINGE SQ SCH ×2 (06:11→16:51)
[2021-03-24] MEDS: Docusate Oral Soln 100 MG/10 ML UDC GTUBE SCH ×2 (08:41→23:08)
[2021-03-24] MEDS: predniSONE 10 MG TABLET PO SCH (08:41)
[2021-03-24] MEDS: Cholecalciferol (D-3) 1,000 UNIT (25MCG) TABLET PO SCH (08:41)
[2021-03-24] MEDS: Fluconazole 100 MG TABLET PO SCH (08:41)
[2021-03-24] MEDS: Neosporin OINT 15 GM TUBE TP SCH ×2 (08:42→22:09)
[2021-03-24] MEDS: Insulin LISPRO 300 UNITS/3 ML VIAL SUBQ SCH ×4 (09:19→22:08)
[2021-03-24] MEDS: Insulin DETEMIR 100 UNIT/ML X5UNITS SUBQ SCH ×2 (09:19→22:21)
[2021-03-24] MEDS: *HR* Metoprolol 5 MG/5 ML VIAL IVP PRN (16:51)
[2021-03-24] MEDS ORDERED: Clinimix E 5%-15% SOLUTION 2,000 ML with MVI, adult with vitamin K 10 ML, ZN/CU/MN/SE... IVC SCH (17:00)
[2021-03-24] MEDS: Simethicone 80 MG TAB.CHEW PO PRN (17:59)
[2021-03-24] MEDS: Immune Glob, Gamma (Gammagard) 30 GM/300 ML INFUS..BTL IVC SCH (22:13)
[2021-03-25 03:46] LABS: VBG Ionized Calcium 1.35 mmol/L (1.15-1.35)
[2021-03-25 03:48] LABS: Basophils % 0.3 %; Eosinophils % 0.3 %; Hematocrit 34.9 % (35.3-44.9); Hemoglobin 11.5 g/dL (11.5-15.4); Immature Granulocytes % 2.2 % (0-4); Lymphocytes % 11.5 %; Mean Corpuscular Hemoglobin 31.2 pg (28.0-33.3); Mean Corpuscular Volume 94.6 fL (83.0-100.0); Monocytes # 0.9 K/mcL (0.0-1.3); Monocytes % 10.7 %; Neutrophils # 6.6 K/mcL (1.6-8.9); Platelet Count 195 K/mcL (140-400); Red Blood Count 3.69 M/mcL (3.82-4.97); Red Cell Distribution Width 14.7 % (11.5-14.5); White Blood Count 8.8 K/mcL (4.3-11.1)
[2021-03-25 04:06] LABS: BUN/Creatinine Ratio 78 (6-26); Blood Urea Nitrogen 32 mg/dL (6-20); Calcium 9.8 mg/dL (8.6-10.3); Carbon Dioxide 25 mEq/L (23-29); Chloride 103 mEq/L (98-107); Glucose 201 mg/dL (70-105); Magnesium 2.1 mg/dL (1.6-2.6); Osmolality,Calculated 293 (280-300); Phosphorous 3.2 mg/dL (2.7-4.5); Potassium 4.4 mEq/L (3.5-5.1); Sodium 135 mEq/L (136-145); eGFR For African Americans > 60 (> 60); eGFR For Non-African Americans > 60 (> 60)
[2021-03-25] MEDS: Acetylcysteine 10% 2 ML INHSOL IH SCH ×4 (05:19→20:23)
[2021-03-25] MEDS: Ipratropium/Albuterol Neb 3 ML IH SCH ×6 (05:19→23:49)
[2021-03-25] MEDS: *HR* Enoxaparin 40 MG/0.4 ML SYRINGE SQ SCH ×2 (06:31→16:44)
[2021-03-25] MEDS: predniSONE 10 MG TABLET PO SCH (07:58)
[2021-03-25] MEDS: Cholecalciferol (D-3) 1,000 UNIT (25MCG) TABLET PO SCH (07:58)
[2021-03-25] MEDS: Fluconazole 100 MG TABLET PO SCH (07:58)
[2021-03-25] MEDS: Docusate Oral Soln 100 MG/10 ML UDC GTUBE SCH ×2 (07:59→20:03)
[2021-03-25] MEDS: lisinopriL 10 MG TABLET PO SCH (07:59)
[2021-03-25] MEDS: Neosporin OINT 15 GM TUBE TP SCH ×2 (08:00→20:05)
[2021-03-25] MEDS: Insulin LISPRO 300 UNITS/3 ML VIAL SUBQ SCH ×4 (08:23→20:04)
[2021-03-25] MEDS: Insulin DETEMIR 100 UNIT/ML X5UNITS SUBQ SCH ×2 (08:23→20:03)
[2021-03-25] MEDS ORDERED: Clinimix E 5%-15% SOLUTION 2,000 ML with MVI, adult with vitamin K 10 ML, ZN/CU/MN/SE... IVC SCH (17:00)
[2021-03-25] MEDS: *HR* Metoprolol 5 MG/5 ML VIAL IVP PRN (17:17)
[2021-03-25] MEDS: Immune Glob, Gamma (Gammagard) 5 GM/50 ML INFUS..BTL IVC SCH (20:27)
[2021-03-25] MEDS: Immune Glob, Gamma (Gammagard) 30 GM/300 ML INFUS..BTL IVC SCH (21:25)
[2021-03-26 03:28] LABS: Basophils % 0.5 %; Eosinophils # 0.1 K/mcL (0.0-0.6); Eosinophils % 0.6 %; Hematocrit 32.3 % (35.3-44.9); Hemoglobin 10.6 g/dL (11.5-15.4); Lymphocytes # 1.3 K/mcL (0.6-4.6); Lymphocytes % 15.5 %; Mean Corpuscular HGB Conc 32.8 g/dL (31.6-35.5); Mean Corpuscular Hemoglobin 31.4 pg (28.0-33.3); Mean Corpuscular Volume 95.6 fL (83.0-100.0); Mean Platelet Volume 10.8 fL (9.4-12.4); Monocytes # 0.8 K/mcL (0.0-1.3); Monocytes % 9.2 %; Neutrophils # 5.9 K/mcL (1.6-8.9); Platelet Count 177 K/mcL (140-400); Red Blood Count 3.38 M/mcL (3.82-4.97); Red Cell Distribution Width 15.4 % (11.5-14.5); Segmented Neutrophils % 72.2 %; White Blood Count 8.1 K/mcL (4.3-11.1)
[2021-03-26 03:39] LABS: VBG Ionized Calcium 1.36 mmol/L (1.15-1.35)
[2021-03-26 03:47] LABS: BUN/Creatinine Ratio 78 (6-26); Blood Urea Nitrogen 31 mg/dL (6-20); Calcium 9.6 mg/dL (8.6-10.3); Carbon Dioxide 25 mEq/L (23-29); Chloride 102 mEq/L (98-107); Glucose 202 mg/dL (70-105); Magnesium 2.1 mg/dL (1.6-2.6); Osmolality,Calculated 286 (280-300); Phosphorous 3.3 mg/dL (2.7-4.5); Potassium 4.2 mEq/L (3.5-5.1); Sodium 132 mEq/L (136-145); eGFR For African Americans > 60 (> 60); eGFR For Non-African Americans > 60 (> 60)
[2021-03-26] MEDS: Acetylcysteine 10% 2 ML INHSOL IH SCH ×4 (03:50→20:35)
[2021-03-26] MEDS: Ipratropium/Albuterol Neb 3 ML IH SCH ×5 (03:50→20:35)
[2021-03-26] MEDS: *HR* Enoxaparin 40 MG/0.4 ML SYRINGE SQ SCH ×2 (06:17→17:24)
[2021-03-26] MEDS: Insulin LISPRO 300 UNITS/3 ML VIAL SUBQ SCH ×4 (08:05→21:21)
[2021-03-26] MEDS: predniSONE 10 MG TABLET PO SCH (08:06)
[2021-03-26] MEDS: Cholecalciferol (D-3) 1,000 UNIT (25MCG) TABLET PO SCH (08:06)
[2021-03-26] MEDS: lisinopriL 10 MG TABLET PO SCH (08:07)
[2021-03-26] MEDS: Pantoprazole 40 MG VIAL IVP SCH (08:07)
[2021-03-26] MEDS: Neosporin OINT 15 GM TUBE TP SCH ×2 (08:07→21:21)
[2021-03-26] MEDS: Insulin DETEMIR 100 UNIT/ML X5UNITS SUBQ SCH ×2 (08:09→21:15)
[2021-03-26] MEDS: Docusate Oral Soln 100 MG/10 ML UDC GTUBE SCH (09:14)
[2021-03-26] MEDS: Dexmedetomidine HCl 400 MCG/100 ML MLS IVC SCH (09:15)
[2021-03-26] MEDS ORDERED: Sennosides/Docusate Sodium TABLET PO PRN (10:25)
[2021-03-26 11:42] LABS: Bilirubin,Urine Negative (Negative); Blood,Urine Small (Negative); Clarity,Urine Clear (Clear); Color,Urine Light-Yellow (Yellow); Glucose,Urine (UA) >=1000 mg/dL (Normal); Ketones,Urine Negative (Negative); Leukocyte Esterase,Urine Negative (Negative); Mucus,Urine Few per lpf (None-Few); Nitrite,Urine Negative (Negative); Protein,Urine Trace mg/dL (Neg-Trace); Specific Gravity,Urine 1.018 (1.010-1.025); Urobilinogen,Urine Normal (Normal)
[2021-03-26] MEDS ORDERED: Clinimix E 5%-15% SOLUTION 2,000 ML with MVI, adult with vitamin K 10 ML, ZN/CU/MN/SE... IVC SCH (17:00)
[2021-03-26] MEDS: Immune Glob, Gamma (Gammagard) 5 GM/50 ML INFUS..BTL IVC SCH (21:11)
[2021-03-26] MEDS: Immune Glob, Gamma (Gammagard) 30 GM/300 ML INFUS..BTL IVC SCH (22:05)
[2021-03-27] MEDS: Ipratropium/Albuterol Neb 3 ML IH SCH ×7 (00:01→23:46)
[2021-03-27] MEDS: Acetylcysteine 10% 2 ML INHSOL IH SCH ×4 (03:29→19:58)
[2021-03-27 03:53] LABS: VBG Ionized Calcium 1.37 mmol/L (1.15-1.35)
[2021-03-27 03:54] LABS: Basophils % 0.5 %; Eosinophils # 0.1 K/mcL (0.0-0.6); Eosinophils % 0.6 %; Hematocrit 30.9 % (35.3-44.9); Hemoglobin 9.9 g/dL (11.5-15.4); Immature Granulocytes % 2.5 % (0-4); Lymphocytes # 1.7 K/mcL (0.6-4.6); Lymphocytes % 21.1 %; Mean Corpuscular Hemoglobin 30.7 pg (28.0-33.3); Mean Corpuscular Volume 95.7 fL (83.0-100.0); Monocytes # 0.8 K/mcL (0.0-1.3); Monocytes % 10.2 %; Neutrophils # 5.2 K/mcL (1.6-8.9); Platelet Count 175 K/mcL (140-400); Red Blood Count 3.23 M/mcL (3.82-4.97); Red Cell Distribution Width 15.2 % (11.5-14.5); Segmented Neutrophils % 65.1 %
[2021-03-27 04:13] LABS: BUN/Creatinine Ratio 66 (6-26); Blood Urea Nitrogen 29 mg/dL (6-20); Calcium 9.4 mg/dL (8.6-10.3); Carbon Dioxide 24 mEq/L (23-29); Chloride 103 mEq/L (98-107); Glucose 154 mg/dL (70-105); Osmolality,Calculated 283 (280-300); Phosphorous 3.6 mg/dL (2.7-4.5); Potassium 3.9 mEq/L (3.5-5.1); Sodium 132 mEq/L (136-145); eGFR For African Americans > 60 (> 60); eGFR For Non-African Americans > 60 (> 60)
[2021-03-27] MEDS ORDERED: Potassium Chloride Elixir 20 MEQ/15 ML UDC PO PRN ×2 (05:35→18:40)
[2021-03-27] MEDS: *HR* Enoxaparin 40 MG/0.4 ML SYRINGE SQ SCH (05:39)
[2021-03-27] MEDS ORDERED: Potassium Chloride Elixir 20 MEQ/15 ML UDC PO SCH (09:00)
[2021-03-27] MEDS ORDERED: Thiamine (B-1) 100 MG in 0.9 % Sodium Chloride 50 ML IVPB SCH (09:00)
[2021-03-27] MEDS: Pantoprazole 40 MG VIAL IVP SCH (09:34)
[2021-03-27] MEDS: Insulin LISPRO 300 UNITS/3 ML VIAL SUBQ SCH ×4 (09:35→19:46)
[2021-03-27] MEDS: predniSONE 10 MG TABLET PO SCH (09:35)
[2021-03-27] MEDS: Cholecalciferol (D-3) 1,000 UNIT (25MCG) TABLET PO SCH (09:35)
[2021-03-27] MEDS: lisinopriL 10 MG TABLET PO SCH (09:35)
[2021-03-27] MEDS: Neosporin OINT 15 GM TUBE TP SCH ×2 (09:36→19:47)
[2021-03-27] MEDS: Insulin DETEMIR 100 UNIT/ML X5UNITS SUBQ SCH ×2 (09:48→19:46)
[2021-03-27] MEDS: Dexmedetomidine HCl 400 MCG/100 ML MLS IVC SCH (12:36)
[2021-03-27 14:19] LABS: HSV Source CSF
[2021-03-27] MEDS: Simethicone 80 MG TAB.CHEW PO PRN (15:28)
[2021-03-27] MEDS ORDERED: Clinimix E 5%-15% SOLUTION 2,000 ML with MVI, adult with vitamin K 10 ML IVC SCH (17:00)
[2021-03-27] MEDS ORDERED: Dextrose Gel 15 GM/37.5 ML TUBE PO PRN ×2 (18:40)
[2021-03-27] MEDS ORDERED: Dexmedetomidine HCl 400 MCG/100 ML MLS IVC SCH (18:40)
[2021-03-27] MEDS ORDERED: Simethicone 80 MG TAB.CHEW PO PRN (18:40)
[2021-03-27] MEDS ORDERED: *HR* Metoprolol 5 MG/5 ML VIAL IVP PRN (18:40)
[2021-03-27] MEDS ORDERED: Potassium Phosphate 44 MEQ in 0.9 % Sodium Chloride 250 ML IVPB PRN (18:40)
[2021-03-27] MEDS ORDERED: *HR* Dextrose 50 % in Water (Syg) 50 ML SYRINGE IVP PRN (18:40)
[2021-03-27] MEDS ORDERED: Calcium Gluconate 1gm/50mL 1 GM/50 ML BAG IVPB PRN (18:40)
[2021-03-27] MEDS ORDERED: Potassium Chloride 40 MEQ/200 ML BAG IVPB PRN (18:40)
[2021-03-27] MEDS ORDERED: D5% in Water 1,000 ML IVC PRN (18:40)
[2021-03-27] MEDS ORDERED: Ipratropium 1 PUFF INHALER IH PRN (18:40)
[2021-03-27] MEDS ORDERED: D10% in Water 500 ML IVC PRN (18:40)
[2021-03-27] MEDS ORDERED: Ondansetron 4 MG/2 ML VIAL IVP PRN (18:40)
[2021-03-27] MEDS ORDERED: Sennosides/Docusate Sodium TABLET PO PRN (18:40)
[2021-03-27 19:41] LABS: Vitamin B12 981 pg/mL (250-1100)
[2021-03-27 19:45] LABS: Vitamin D 25 Hydroxy 25 ng/mL (30-80)
[2021-03-27] MEDS ORDERED: Immune Glob, Gamma (Gammagard) 30 GM/300 ML INFUS..BTL IVC SCH (21:15)
[2021-03-27] MEDS ORDERED: Immune Glob, Gamma (Gammagard) 5 GM/50 ML INFUS..BTL IVC SCH (21:15)
[2021-03-27] MEDS: Immune Glob, Gamma (Gammagard) 5 GM/50 ML INFUS..BTL IVC SCH (21:21)
[2021-03-28 03:54] LABS: VBG Ionized Calcium 1.39 mmol/L (1.15-1.35)
[2021-03-28 03:55] LABS: Basophils % 0.5 %; Eosinophils # 0.1 K/mcL (0.0-0.6); Eosinophils % 0.9 %; Hematocrit 30.1 % (35.3-44.9); Hemoglobin 9.7 g/dL (11.5-15.4); Immature Granulocytes % 3.5 % (0-4); Lymphocytes # 1.5 K/mcL (0.6-4.6); Mean Corpuscular HGB Conc 32.2 g/dL (31.6-35.5); Mean Corpuscular Hemoglobin 30.3 pg (28.0-33.3); Mean Corpuscular Volume 94.1 fL (83.0-100.0); Mean Platelet Volume 10.7 fL (9.4-12.4); Monocytes # 0.8 K/mcL (0.0-1.3); Monocytes % 11.4 %; Neutrophils # 4.7 K/mcL (1.6-8.9); Platelet Count 193 K/mcL (140-400); Red Cell Distribution Width 15.3 % (11.5-14.5); Segmented Neutrophils % 63.7 %; White Blood Count 7.4 K/mcL (4.3-11.1)
[2021-03-28] MEDS: Ipratropium/Albuterol Neb 3 ML IH SCH ×6 (04:02→23:19)
[2021-03-28] MEDS: Acetylcysteine 10% 2 ML INHSOL IH SCH ×4 (04:02→20:32)
[2021-03-28 04:11] LABS: BUN/Creatinine Ratio 70 (6-26); Blood Urea Nitrogen 26 mg/dL (6-20); Calcium 9.3 mg/dL (8.6-10.3); Carbon Dioxide 23 mEq/L (23-29); Chloride 103 mEq/L (98-107); Glucose 190 mg/dL (70-105); Magnesium 1.9 mg/dL (1.6-2.6); Osmolality,Calculated 282 (280-300); Phosphorous 3.5 mg/dL (2.7-4.5); Potassium 3.9 mEq/L (3.5-5.1); Sodium 131 mEq/L (136-145); eGFR For African Americans > 60 (> 60); eGFR For Non-African Americans > 60 (> 60)
[2021-03-28] MEDS ORDERED: *HR* Enoxaparin 40 MG/0.4 ML SYRINGE SQ SCH ×2 (06:00)
[2021-03-28] MEDS: Insulin LISPRO 300 UNITS/3 ML VIAL SUBQ SCH ×4 (08:46→20:20)
[2021-03-28] MEDS: Insulin DETEMIR 100 UNIT/ML X5UNITS SUBQ SCH ×2 (08:47→20:22)
[2021-03-28] MEDS: Neosporin OINT 15 GM TUBE TP SCH ×2 (08:49→20:20)
[2021-03-28] MEDS ORDERED: Cholecalciferol (D-3) 1,000 UNIT (25MCG) TABLET PO SCH (09:00)
[2021-03-28] MEDS ORDERED: lisinopriL 10 MG TABLET PO SCH (09:00)
[2021-03-28] MEDS ORDERED: predniSONE 10 MG TABLET PO SCH (09:00)
[2021-03-28] MEDS ORDERED: Thiamine (B-1) 100 MG in 0.9 % Sodium Chloride 50 ML IVPB SCH (09:00)
[2021-03-28] MEDS ORDERED: Pantoprazole 40 MG VIAL IVP SCH (09:00)
[2021-03-28 11:11] LABS: Enterovirus RNA Qual (PCR) NOT DETECTED
[2021-03-28] MEDS ORDERED: Gadolinium Contrast Agent (WT Based) IV PRN (11:32)
[2021-03-28] MEDS ORDERED: Ipratropium 1 PUFF INHALER IH PRN (11:52)
[2021-03-28] MEDS ORDERED: Potassium Phosphate 44 MEQ in 0.9 % Sodium Chloride 250 ML IVPB PRN (11:52)
[2021-03-28] MEDS ORDERED: Dextrose Gel 15 GM/37.5 ML TUBE PO PRN ×2 (11:52)
[2021-03-28] MEDS ORDERED: *HR* Metoprolol 5 MG/5 ML VIAL IVP PRN (11:52)
[2021-03-28] MEDS ORDERED: Calcium Gluconate 1gm/50mL 1 GM/50 ML BAG IVPB PRN (11:52)
[2021-03-28] MEDS ORDERED: Potassium Chloride Elixir 20 MEQ/15 ML UDC PO PRN (11:52)
[2021-03-28] MEDS ORDERED: D5% in Water 1,000 ML IVC PRN (11:52)
[2021-03-28] MEDS ORDERED: *HR* Dextrose 50 % in Water (Syg) 50 ML SYRINGE IVP PRN (11:52)
[2021-03-28] MEDS ORDERED: Potassium Chloride 40 MEQ/200 ML BAG IVPB PRN (11:52)
[2021-03-28] MEDS ORDERED: D10% in Water 500 ML IVC PRN (11:52)
[2021-03-28] MEDS ORDERED: Clinimix E 5%-15% SOLUTION 2,000 ML with MVI, adult with vitamin K 10 ML IVC SCH (17:00)
[2021-03-28] MEDS: Dexmedetomidine HCl 400 MCG/100 ML MLS IVC SCH (20:16)
[2021-03-29] MEDS: Insulin LISPRO 300 UNITS/3 ML VIAL SUBQ SCH ×6 (00:32→20:20)
[2021-03-29] MEDS: Simethicone 80 MG TAB.CHEW PO PRN ×2 (00:35→10:06)
[2021-03-29 03:06] LABS: Basophils # 0.1 K/mcL (0.0-0.2); Basophils % 0.6 %; Eosinophils % 0.4 %; Hematocrit 32.1 % (35.3-44.9); Hemoglobin 10.8 g/dL (11.5-15.4); Immature Granulocytes % 3.3 % (0-4); Lymphocytes # 1.9 K/mcL (0.6-4.6); Lymphocytes % 19.2 %; Mean Corpuscular HGB Conc 33.6 g/dL (31.6-35.5); Mean Corpuscular Hemoglobin 30.9 pg (28.0-33.3); Mean Corpuscular Volume 91.7 fL (83.0-100.0); Mean Platelet Volume 10.7 fL (9.4-12.4); Monocytes # 1.1 K/mcL (0.0-1.3); Monocytes % 10.5 %; Neutrophils # 6.6 K/mcL (1.6-8.9); Platelet Count 228 K/mcL (140-400); Red Cell Distribution Width 15.2 % (11.5-14.5); White Blood Count 10.1 K/mcL (4.3-11.1)
[2021-03-29 03:09] LABS: VBG Ionized Calcium 1.41 mmol/L (1.15-1.35)
[2021-03-29 03:29] LABS: BUN/Creatinine Ratio 69 (6-26); Blood Urea Nitrogen 24 mg/dL (6-20); Calcium 9.7 mg/dL (8.6-10.3); Carbon Dioxide 24 mEq/L (23-29); Chloride 103 mEq/L (98-107); Glucose 78 mg/dL (70-105); Osmolality,Calculated 279 (280-300); Phosphorous 3.4 mg/dL (2.7-4.5); Potassium 3.9 mEq/L (3.5-5.1); Sodium 133 mEq/L (136-145); eGFR For African Americans > 60 (> 60); eGFR For Non-African Americans > 60 (> 60)
[2021-03-29] MEDS: Ipratropium/Albuterol Neb 3 ML IH SCH ×6 (03:50→23:41)
[2021-03-29] MEDS: Acetylcysteine 10% 2 ML INHSOL IH SCH ×4 (03:50→20:46)
[2021-03-29] MEDS: *HR* Enoxaparin 40 MG/0.4 ML SYRINGE SQ SCH (05:30)
[2021-03-29] MEDS: Dexmedetomidine HCl 400 MCG/100 ML MLS IVC SCH (08:36)
[2021-03-29] MEDS ORDERED: predniSONE 20 MG TABLET PO SCH (09:00)
[2021-03-29] MEDS ORDERED: Thiamine (B-1) 100 MG in 0.9 % Sodium Chloride 50 ML IVPB SCH (09:00)
[2021-03-29] MEDS ORDERED: Pantoprazole 40 MG VIAL IVP SCH (09:00)
[2021-03-29] MEDS: Cholecalciferol (D-3) 1,000 UNIT (25MCG) TABLET PO SCH (10:06)
[2021-03-29] MEDS: predniSONE 20 MG TABLET PO SCH (10:07)
[2021-03-29] MEDS: lisinopriL 10 MG TABLET PO SCH (10:07)
[2021-03-29] MEDS: Insulin DETEMIR 100 UNIT/ML X5UNITS SUBQ SCH ×2 (10:08→20:16)
[2021-03-29] MEDS: Neosporin OINT 15 GM TUBE TP SCH ×2 (10:29→20:13)
[2021-03-29] MEDS ORDERED: Gadolinium Contrast Agent (WT Based) IV PRN (15:30)
[2021-03-29] MEDS: Clinimix E 5%-15% SOLUTION 2,000 ML with MVI, adult with vitamin K 10 ML IVC SCH (16:09)
[2021-03-30] MEDS: Insulin LISPRO 300 UNITS/3 ML VIAL SUBQ SCH ×7 (00:29→23:59)
[2021-03-30 03:27] LABS: VBG Ionized Calcium 1.34 mmol/L (1.15-1.35)
[2021-03-30 03:27] LABS: Basophils # 0.1 K/mcL (0.0-0.2); Basophils % 0.6 %; Eosinophils # 0.1 K/mcL (0.0-0.6); Eosinophils % 0.4 %; Hemoglobin 10.9 g/dL (11.5-15.4); Immature Granulocytes % 2.8 % (0-4); Lymphocytes # 2.3 K/mcL (0.6-4.6); Lymphocytes % 18.5 %; Mean Corpuscular Hemoglobin 30.4 pg (28.0-33.3); Mean Corpuscular Volume 92.2 fL (83.0-100.0); Mean Platelet Volume 10.5 fL (9.4-12.4); Monocytes # 1.2 K/mcL (0.0-1.3); Neutrophils # 8.3 K/mcL (1.6-8.9); Platelet Count 255 K/mcL (140-400); Red Blood Count 3.58 M/mcL (3.82-4.97); Red Cell Distribution Width 15.4 % (11.5-14.5); Segmented Neutrophils % 67.7 %; White Blood Count 12.3 K/mcL (4.3-11.1)
[2021-03-30 03:41] LABS: BUN/Creatinine Ratio 65 (6-26); Blood Urea Nitrogen 26 mg/dL (6-20); Calcium 9.7 mg/dL (8.6-10.3); Carbon Dioxide 23 mEq/L (23-29); Chloride 103 mEq/L (98-107); Glucose 119 mg/dL (70-105); Magnesium 1.9 mg/dL (1.6-2.6); Osmolality,Calculated 280 (280-300); Phosphorous 3.3 mg/dL (2.7-4.5); Potassium 3.8 mEq/L (3.5-5.1); Sodium 132 mEq/L (136-145); eGFR For African Americans > 60 (> 60); eGFR For Non-African Americans > 60 (> 60)
[2021-03-30] MEDS: Ipratropium/Albuterol Neb 3 ML IH SCH ×6 (03:58→23:45)
[2021-03-30] MEDS: Acetylcysteine 10% 2 ML INHSOL IH SCH ×4 (03:58→20:27)
[2021-03-30] MEDS: Dexmedetomidine HCl 400 MCG/100 ML MLS IVC SCH (04:39)
[2021-03-30] MEDS: *HR* Enoxaparin 40 MG/0.4 ML SYRINGE SQ SCH (06:05)
[2021-03-30] MEDS: Thiamine (B-1) 100 MG TABLET PO SCH (08:18)
[2021-03-30] MEDS: Cholecalciferol (D-3) 1,000 UNIT (25MCG) TABLET PO SCH (08:18)
[2021-03-30] MEDS: Simethicone 80 MG TAB.CHEW PO PRN (08:18)
[2021-03-30] MEDS: Ondansetron 4 MG/2 ML VIAL IVP PRN (08:19)
[2021-03-30] MEDS: predniSONE 20 MG TABLET PO SCH (08:19)
[2021-03-30] MEDS: lisinopriL 10 MG TABLET PO SCH (08:19)
[2021-03-30] MEDS: Insulin DETEMIR 100 UNIT/ML X5UNITS SUBQ SCH ×2 (08:53→19:55)
[2021-03-30] MEDS: Neosporin OINT 15 GM TUBE TP SCH ×2 (10:05→19:57)
[2021-03-30] MEDS ORDERED: Clinimix E 5%-15% SOLUTION 2,000 ML with MVI, adult with vitamin K 10 ML IVC SCH (17:00)
[2021-03-30] MEDS: Clinimix E 5%-15% SOLUTION 2,000 ML with MVI, adult with vitamin K 10 ML IVC SCH (17:00)
[2021-03-31] MEDS: Dexmedetomidine HCl 400 MCG/100 ML MLS IVC SCH (01:36)
[2021-03-31] MEDS: Insulin LISPRO 300 UNITS/3 ML VIAL SUBQ SCH ×6 (01:36→20:27)
[2021-03-31 02:12] LABS: Basophils # 0.1 K/mcL (0.0-0.2); Basophils % 0.6 %; Eosinophils # 0.1 K/mcL (0.0-0.6); Eosinophils % 0.4 %; Hematocrit 32.5 % (35.3-44.9); Hemoglobin 10.8 g/dL (11.5-15.4); Lymphocytes # 2.8 K/mcL (0.6-4.6); Lymphocytes % 22.3 %; Mean Corpuscular HGB Conc 33.2 g/dL (31.6-35.5); Mean Corpuscular Hemoglobin 30.6 pg (28.0-33.3); Mean Corpuscular Volume 92.1 fL (83.0-100.0); Mean Platelet Volume 10.2 fL (9.4-12.4); Monocytes # 1.3 K/mcL (0.0-1.3); Monocytes % 10.1 %; Nucleated Red Blood Cells 0.2 /100 WBC (0); Platelet Count 283 K/mcL (140-400); Red Blood Count 3.53 M/mcL (3.82-4.97); Red Cell Distribution Width 15.6 % (11.5-14.5); Segmented Neutrophils % 63.6 %; White Blood Count 12.5 K/mcL (4.3-11.1)
[2021-03-31 02:24] LABS: BUN/Creatinine Ratio 66 (6-26); Blood Urea Nitrogen 23 mg/dL (6-20); Calcium 9.9 mg/dL (8.6-10.3); Carbon Dioxide 24 mEq/L (23-29); Chloride 103 mEq/L (98-107); Glucose 105 mg/dL (70-105); Osmolality,Calculated 282 (280-300); Phosphorous 3.7 mg/dL (2.7-4.5); Potassium 4.2 mEq/L (3.5-5.1); Sodium 134 mEq/L (136-145); Triglycerides 158 mg/dL (< 150); eGFR For African Americans > 60 (> 60); eGFR For Non-African Americans > 60 (> 60)
[2021-03-31] MEDS: Acetylcysteine 10% 2 ML INHSOL IH SCH ×2 (04:04→07:41)
[2021-03-31] MEDS: Ipratropium/Albuterol Neb 3 ML IH SCH ×5 (04:04→20:04)
[2021-03-31] MEDS: *HR* Enoxaparin 40 MG/0.4 ML SYRINGE SQ SCH (05:10)
[2021-03-31] MEDS: Simethicone 80 MG TAB.CHEW PO PRN ×3 (05:10→23:54)
[2021-03-31] MEDS: Cholecalciferol (D-3) 1,000 UNIT (25MCG) TABLET PO SCH (08:40)
[2021-03-31] MEDS: predniSONE 20 MG TABLET PO SCH (08:40)
[2021-03-31] MEDS: Thiamine (B-1) 100 MG TABLET PO SCH (08:40)
[2021-03-31] MEDS: lisinopriL 10 MG TABLET PO SCH (08:40)
[2021-03-31] MEDS: Neosporin OINT 15 GM TUBE TP SCH ×2 (08:41→20:28)
[2021-03-31] MEDS: Insulin DETEMIR 100 UNIT/ML X5UNITS SUBQ SCH ×2 (08:42→20:27)
[2021-03-31] MEDS ORDERED: Metoclopramide 10 MG/2 ML VIAL IVP ONE (10:05)
[2021-03-31] MEDS: Ondansetron 4 MG/2 ML VIAL IVP PRN (15:45)
[2021-03-31] MEDS ORDERED: Clinimix E 5%-15% SOLUTION 2,000 ML with MVI, adult with vitamin K 10 ML IVC SCH (17:00)
[2021-04-01] MEDS: Insulin LISPRO 300 UNITS/3 ML VIAL SUBQ SCH ×6 (00:28→22:32)
[2021-04-01] MEDS: Ipratropium/Albuterol Neb 3 ML IH SCH ×7 (00:32→23:21)
[2021-04-01 01:27] LABS: BUN/Creatinine Ratio 67 (6-26); Blood Urea Nitrogen 24 mg/dL (6-20); Carbon Dioxide 26 mEq/L (23-29); Chloride 101 mEq/L (98-107); Glucose 80 mg/dL (70-105); Osmolality,Calculated 277 (280-300); Phosphorous 3.4 mg/dL (2.7-4.5); Potassium 4.1 mEq/L (3.5-5.1); Sodium 132 mEq/L (136-145); eGFR For African Americans > 60 (> 60); eGFR For Non-African Americans > 60 (> 60)
[2021-04-01] MEDS: *HR* Enoxaparin 40 MG/0.4 ML SYRINGE SQ SCH (06:08)
[2021-04-01] MEDS: predniSONE 20 MG TABLET PO SCH (08:06)
[2021-04-01] MEDS: Simethicone 80 MG TAB.CHEW PO PRN ×2 (08:06→12:48)
[2021-04-01] MEDS: Cholecalciferol (D-3) 1,000 UNIT (25MCG) TABLET PO SCH (08:06)
[2021-04-01] MEDS: Insulin DETEMIR 100 UNIT/ML X5UNITS SUBQ SCH ×2 (08:07→22:48)
[2021-04-01] MEDS: Thiamine (B-1) 100 MG TABLET PO SCH (08:07)
[2021-04-01] MEDS: lisinopriL 10 MG TABLET PO SCH (08:07)
[2021-04-01] MEDS: Neosporin OINT 15 GM TUBE TP SCH ×2 (08:07→22:48)
[2021-04-01] MEDS: Ondansetron 4 MG/2 ML VIAL IVP PRN (08:26)
[2021-04-01] MEDS: Sennosides/Docusate Sodium TABLET PO PRN (12:48)
[2021-04-01] MEDS ORDERED: Clinimix E 5%-15% SOLUTION 2,000 ML with MVI, adult with vitamin K 10 ML IVC SCH (17:00)
[2021-04-02] MEDS: Insulin LISPRO 300 UNITS/3 ML VIAL SUBQ SCH ×6 (02:23→22:22)
[2021-04-02] MEDS: Ipratropium/Albuterol Neb 3 ML IH SCH ×6 (03:44→23:40)
[2021-04-02] MEDS: Ondansetron 4 MG/2 ML VIAL IVP PRN (04:15)
[2021-04-02] MEDS: Simethicone 80 MG TAB.CHEW PO PRN (06:22)
[2021-04-02] MEDS: *HR* Enoxaparin 40 MG/0.4 ML SYRINGE SQ SCH (06:22)
[2021-04-02] MEDS: Sennosides/Docusate Sodium TABLET PO PRN (08:15)
[2021-04-02] MEDS: predniSONE 20 MG TABLET PO SCH (08:15)
[2021-04-02] MEDS: lisinopriL 10 MG TABLET PO SCH (08:15)
[2021-04-02] MEDS: Cholecalciferol (D-3) 1,000 UNIT (25MCG) TABLET PO SCH (08:15)
[2021-04-02] MEDS: Thiamine (B-1) 100 MG TABLET PO SCH (08:16)
[2021-04-02] MEDS: Insulin DETEMIR 100 UNIT/ML X5UNITS SUBQ SCH ×2 (08:16→22:22)
[2021-04-02] MEDS: Neosporin OINT 15 GM TUBE TP SCH ×2 (08:16→22:28)
[2021-04-02 08:38] LABS: BUN/Creatinine Ratio 65 (6-26); Blood Urea Nitrogen 24 mg/dL (6-20); Calcium 9.6 mg/dL (8.6-10.3); Carbon Dioxide 28 mEq/L (23-29); Chloride 99 mEq/L (98-107); Glucose 161 mg/dL (70-105); Magnesium 1.9 mg/dL (1.6-2.6); Osmolality,Calculated 280 (280-300); Phosphorous 3.5 mg/dL (2.7-4.5); Potassium 4.3 mEq/L (3.5-5.1); Sodium 131 mEq/L (136-145); eGFR For African Americans > 60 (> 60); eGFR For Non-African Americans > 60 (> 60)
[2021-04-02] MEDS: Simethicone 80 MG TAB.CHEW PO SCH ×3 (10:07→22:22)
[2021-04-03] MEDS: Ipratropium/Albuterol Neb 3 ML IH SCH ×5 (04:15→20:47)
[2021-04-03] MEDS: *HR* Enoxaparin 40 MG/0.4 ML SYRINGE SQ SCH (05:32)
[2021-04-03 06:29] LABS: BUN/Creatinine Ratio 51 (6-26); Blood Urea Nitrogen 20 mg/dL (6-20); Calcium 9.9 mg/dL (8.6-10.3); Carbon Dioxide 30 mEq/L (23-29); Chloride 98 mEq/L (98-107); Glucose 79 mg/dL (70-105); Magnesium 1.9 mg/dL (1.6-2.6); Osmolality,Calculated 276 (280-300); Phosphorous 3.8 mg/dL (2.7-4.5); Potassium 3.8 mEq/L (3.5-5.1); Sodium 132 mEq/L (136-145); eGFR For African Americans > 60 (> 60); eGFR For Non-African Americans > 60 (> 60)
[2021-04-03] MEDS: Insulin LISPRO 300 UNITS/3 ML VIAL SUBQ SCH ×4 (07:50→20:38)
[2021-04-03] MEDS: Cholecalciferol (D-3) 1,000 UNIT (25MCG) TABLET PO SCH (09:04)
[2021-04-03] MEDS: predniSONE 20 MG TABLET PO SCH (09:05)
[2021-04-03] MEDS: lisinopriL 10 MG TABLET PO SCH (09:06)
[2021-04-03] MEDS: Insulin DETEMIR 100 UNIT/ML X5UNITS SUBQ SCH (09:06)
[2021-04-03] MEDS: Simethicone 80 MG TAB.CHEW PO SCH ×3 (09:06→20:37)
[2021-04-03] MEDS: Thiamine (B-1) 100 MG TABLET PO SCH (09:06)
[2021-04-03] MEDS: Neosporin OINT 15 GM TUBE TP SCH ×2 (09:07→20:38)
[2021-04-03] MEDS ORDERED: E-Z-HD (BARIUM SULF) SUSPENSION PO ONE (13:42)
[2021-04-03] MEDS ORDERED: E-Z-PAQUE (BARIUM SULF) SUSP 1 BOTTLE PO ONE (13:42)
[2021-04-04] MEDS: Ipratropium/Albuterol Neb 3 ML IH SCH ×4 (00:06→11:25)
[2021-04-04] MEDS: *HR* Enoxaparin 40 MG/0.4 ML SYRINGE SQ SCH (05:17)
[2021-04-04 06:43] LABS: BUN/Creatinine Ratio 45 (6-26); Blood Urea Nitrogen 18 mg/dL (6-20); Calcium 9.7 mg/dL (8.6-10.3); Carbon Dioxide 30 mEq/L (23-29); Chloride 99 mEq/L (98-107); Glucose 89 mg/dL (70-105); Magnesium 1.8 mg/dL (1.6-2.6); Osmolality,Calculated 281 (280-300); Potassium 3.7 mEq/L (3.5-5.1); Sodium 135 mEq/L (136-145); eGFR For African Americans > 60 (> 60); eGFR For Non-African Americans > 60 (> 60)
[2021-04-04 08:02] VITALS: BP 102/67; PULSE 112; TEMP 98.2
[2021-04-04] MEDS: Insulin LISPRO 300 UNITS/3 ML VIAL SUBQ SCH ×2 (08:24→12:02)
[2021-04-04] MEDS: Simethicone 80 MG TAB.CHEW PO SCH (09:03)
[2021-04-04] MEDS: Cholecalciferol (D-3) 1,000 UNIT (25MCG) TABLET PO SCH (09:03)
[2021-04-04] MEDS: Thiamine (B-1) 100 MG TABLET PO SCH (09:03)
[2021-04-04] MEDS: Neosporin OINT 15 GM TUBE TP SCH (09:04)
[2021-04-04] MEDS: lisinopriL 10 MG TABLET PO SCH (09:04)
[2021-04-04] MEDS: Ondansetron 4 MG/2 ML VIAL IVP PRN (11:03)
[2021-04-04 11:29] VITALS: O2SAT 94
== END 2021-04-04 12:25 | DRG 720 ==
LOC: ICNU → SUATTDRO 03-02 22:18 → 2NNU 03-28 20:01 → 2ANU 04-01 14:03
PROVIDERS: ADMIT Family Medicine; ATTEND Internal Medicine